=== PATIENT | female | born 1935 | race Caucasian/White ===

== ENCOUNTER → 2017-04-15 | Outpatient (REF) | payer MEDICARE ==
[~2017-04-15] MED LIST: /AMLO25TA PO; /WARF4TA PO; /WARF5TA PO; AMLO5TAB2 PO; ASPI81TA7 PO; AVAP300T PO; B COTAB3 PO; CALC1TAB74 PO; CALC600T7 PO; CARV6.25 PO; CHOL4POW4 PO; COZA100T2 PO; DOCU10ELUD PO; ELIQ2.5T PO; GLUC500T PO; GLYB5TAB5 PO; HEPA50VL SQ; LOPR50TA PO; LOSA100T36 PO; LOSA100T8 PO; MULTTAB4 PO; PRAD150C PO; PRAD75CA3 PO; PRAV40TA PO; TOPR25TA PO; TYLE325T5 PO; VIT250TA PO; ZETI10TA21 PO
[2017-04-16 12:00] LABS: MEAN CORPUSCULAR HEMOGLOBIN 31.1 pg (27.0-33.0); MEAN CORPUSCULAR HGB CONC 33.5 g/dl (32.0-36.5); MEAN CORPUSCULAR VOLUME 92.8 fl (80.0-96.0); RED CELL DISTRIBUTION WIDTH 12.9 % (11.5-14.5)
[2017-04-16 12:24] LABS: CALCIUM LEVEL 9.2 MG/DL (8.8-10.2); CREATININE FOR GFR 1.33 MG/DL (0.55-1.02); GLOMERULAR FILTRATION RATE 40.8 (>32); POTASSIUM SERUM 4.4 MEQ/L (3.5-5.1)
== END ==
LOC: M SFHCCLAY 14:47
PROVIDERS: ATTEND Family Medicine
DX: I48.2 Chronic atrial fibrillation (principal); E11.9 Type 2 diabetes mellitus without complications
CPT/HCPCS: 80048; 83036; 84443; 85027; G0463

== ENCOUNTER → 2017-04-29 | Outpatient (CLI) | payer MEDICARE ==
--- NOTE | 2017-04-29 10:12 | REP ---
CAROTID DUPLEX ULTRASOUND: 04/29/2017. COMPARISON: 06/30/2014 CLINICAL HISTORY: Left carotid bruit. FINDINGS: Standard duplex techniques utilized bilaterally. The right common carotid artery shows some areas of mid course mixed plaque and more mixed plaque distally into the bulb and into the proximal ICA and ECA. The left common carotid shows some intimal thickening and mixed plaque mid and distal portion. Mixed plaque at the bulb and extending into the proximal ICA and ECA. Peak Velocities: RIGHT LEFT CCA systolic 1.17 0.78 m/s ICA systolic 0.74 0.76 m/s ICA diastolic 0.19 0.18 m/s ECA systolic 0.68 1.31 m/s IC/CC ratio 0.6 1.0 There is cranial direction of flow in the right vertebral artery. The left vertebral artery is not visible on today's examination. The previous exam suggested questionable subclavian steal phenomenon. The Doppler waveform analysis does not show spectral broadening or filling of the systolic window on the right. The left internal carotid is also without any significant filling in of the systolic window or spectral broadening. IMPRESSION: 1. Less than 50% stenosis bilateral internal carotids more plaque left than right but there was no hemodynamically significant or flow restricting lesion noted. 2. The right vertebral artery shows cranial directional flow. I do not see color flow demonstrated in either direction for the left vertebral artery on today's study. Signed by Charbel Quesada MD 04/29/2017 11:40 A
== END ==
LOC: M RAD 08:38
PROVIDERS: ATTEND Family Medicine
DX: R09.89 Other specified symptoms and signs involving the circulatory and respiratory systems (principal)

== ENCOUNTER 2017-05-25 12:21 | Inpatient (IN) | payer MEDICARE ==
[~2017-05-25] VITALS: Ht 157.5 cm; Wt 66.1 kg
[~2017-05-25 12:21] MED LIST changes: -AMLO5TAB2 PO; -B COTAB3 PO; -CALC1TAB74 PO; -CHOL4POW4 PO; -ELIQ2.5T PO; -LOSA100T8 PO; -PRAD150C PO; -PRAD75CA3 PO
[2017-05-25] MEDS ORDERED: PRAD150C PO ×2 (12:38→12:46)
[2017-05-25] MEDS ORDERED: CHOL4POW4 PO (12:46)
[2017-05-25 13:33] LABS: BASO % 0.1 % (0.0-1.0); EOS % 0.4 % (0.0-3.0); IMMATURE GRANULOCYTE % 0.7 % (0-0); LYMPH # 1.6 10^3/uL (1.5-4.5); LYMPH % 19.3 % (24.0-44.0); MEAN CORPUSCULAR HEMOGLOBIN 30.9 pg (27.0-33.0); MEAN CORPUSCULAR HGB CONC 33.2 g/dl (32.0-36.5); MEAN CORPUSCULAR VOLUME 93.1 fl (80.0-96.0); MONO # 0.6 10^3/uL (0.0-0.8); MONO % 6.8 % (0.0-5.0); NEUTROPHILS % 72.7 % (36.0-66.0); PLATELET COUNT, AUTOMATED 234 10^3/uL (150-450); RED CELL DISTRIBUTION WIDTH 12.9 % (11.5-14.5); WHITE BLOOD COUNT 8.2 10^3/uL (4.0-10.0)
[2017-05-25 13:35] LABS: ADD MANUAL DIFFER NO; DIFF SLIDE NUMBER 233
[2017-05-25 13:47] LABS: INR 4.09
[2017-05-25 13:54] LABS: ALBUMIN 3.5 GM/DL (3.2-5.2); ALBUMIN/GLOBULIN RATIO 1.03 (1.00-1.93); ALKALINE PHOSPHATASE 34 U/L (45-117); ALT/SGPT 17 U/L (12-78); ANION GAP 9 MEQ/L (8-16); AST/SGOT 13 U/L (15-37); BILIRUBIN,DIRECT 0.1 MG/DL (0.0-0.2); BILIRUBIN,TOTAL 0.4 MG/DL (0.2-1.0); BLOOD UREA NITROGEN 36 MG/DL (7-18); CALCIUM LEVEL 9.5 MG/DL (8.8-10.2); CARBON DIOXIDE LEVEL 24 MEQ/L (21-32); CHLORIDE LEVEL 103 MEQ/L (98-107); CREATININE FOR GFR 1.17 MG/DL (0.55-1.02); GLOMERULAR FILTRATION RATE 47.3 (>32); GLUCOSE, FASTING 139 MG/DL (83-110); POTASSIUM SERUM 4.2 MEQ/L (3.5-5.1); SODIUM LEVEL 136 MEQ/L (136-145); TOTAL PROTEIN 6.9 GM/DL (6.4-8.2)
--- NOTE | 2017-05-25 14:02 | REP ---
CHEST X-RAY: Two views. HISTORY: Abdominal pain. COMPARISON STUDY: July 04, 2012. FINDINGS: The lungs are well inflated and free of infiltrate. The pleural angles are sharp. The heart size is normal. Pulmonary vasculature is not increased. No significant bony abnormality is seen. The aorta is calcific and tortuous. There are mild degenerative changes in the thoracic spine. IMPRESSION: Degenerative changes in the thoracic spine and the thoracic aorta. Otherwise negative chest x-ray. Signed by Derrick Wheeler MD 05/25/2017 02:16 P
[2017-05-25] MEDS ORDERED: AMLO5TAB2 PO (14:44)
[2017-05-25] MEDS ORDERED: B COTAB3 PO (14:44)
[2017-05-25] MEDS ORDERED: LOSA100T8 PO (14:44)
[2017-05-25] MEDS ORDERED: CALC1TAB74 PO (14:46)
--- NOTE | 2017-05-25 14:58 | HPEPDOC ---
[facility] Medical History & Physical Date of Admission May 25, 2017 History and Physical ATTENDING: Dr. Flores PCP: Mikie CC: dark stools HPI: 81yoF with PMH of chronic Afib on Pradaxa who states she had noticed dark stools since last Thursday. She was seen by her PCP with Guaiac positive stool and was sent to ED for evaluation. States she has been feeling generally fatigued, weak. Denies nausea, vomitting, diarrhea, constipation, abdominal pain. Denies any fevers, chills, RUANO, CP, SOB, cough, palpitations, or changes in bladder habits. Upon presentation to the hospital the patient was found to have guaiac positive stool, thus the hospitalist team was consulted. 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 [facility]. NOSE SURGERY SOCHX: Resides in: [facility] Marital Status: Kids: 2 Tobacco use: former smoker ETOH: denies Illicit Drugs: Denies Advanced directives: Pt wants to be DNR. FAMHX: Mother: breast Ca Father: CVA Siblings: 3 brothers, 1 sister Alive, CVA Children: 2 Dtr Alive, well Unexpected deaths due to medical reasons: None. ROS: As noted in HPI, otherwise 11pt ROS of systems reviewed and unremarkable. PE: GEN: 81yoF, appears stated age. Well-nourished, well developed. No acute distress. Alert and oriented x 3. Pleasant, interactive. HEENT: Normocephalic, atraumatic. Pupils are equal, round, and reactive to light. Extraocular movements are intact. No nystagmus appreciated. Sclera are nonicteric. Conjunctiva without injection. Nose midline. Nasal turbinates without bogginess. EACs both patent BL. No facial asymmetry. Moist mucous membranes. Dentition fair. Pharynx pink and moist, no cobblestoning. Neck supple , trachea midline. No lymphadenopathy or thyromegaly appreciated. CHEST: Regular rate and rhythm, +S1, +S2 LUNGS: Clear to auscultation bilaterally. No wheezes, rales, or rhonchi. Breathing appears symmetric and easy. Patient is speaking in full sentences. No accessory muscle use. ABD: Round, soft, non-tender, non-distended. +Bowel sounds throughout. No rebound or guarding. No costovertebral angle tenderness. EXT: Pulses 2+ bilaterally dorsalis pedis and radial. No lower extremity edema appreciated. SKIN: [place], dry, warm. Capillary refill <2sec. No rashes. NEURO: Alert and oriented x 3. Cranial nerves III-XII are intact. No focal deficits appreciated. CXR: Degenerative changes in the thoracic spine and the thoracic aorta. Otherwise negative chest x-ray EKG: Afib VR 104 bpm, low voltage, NSST abn. A&P: 81yoF with PMH of chronic Afib on Pradaxa who states she had noticed dark stools since last Thursday. She was seen by her PCP with Guaiac positive stool and was sent to ED for evaluation. States she has been feeling generally fatigued, weak. Denies nausea, vomitting, diarrhea, constipation, abdominal pain. 1. The patient will be admitted to PCU for at least [address] Flores' s service. Pt is discussed with Dr Garland. 2. Symptomatic anemia/GI Bleed. Consent on chart. 2 u PRBC. Trend Hgb with Q6 CBC. Baseline Hgb appears to be 10-11. Last EGD/[place] 2008 ioana Can. Consider Surgical/GI consult if needed. 3. HLD. Statin. Hold Cholestyramine for now. 4. HTN. Cont BB with hold parameters. Hold ARB/HCTZ/Norvasc for now. 5. Chronic Afib. TM/PCU. BB with hold parameters. Hold pradaxa for now related to GI bleed. 6. DM. SSI/Clear liq diet. Hold Metformin for now. DVT prophylaxis. SCD/TEDS. No anticoagulation related to above. The patient requests DNR. Vital Signs Vital Signs Date Time Temp Pulse Resp B/P (MAP) Pulse Ox O2 Delivery O2 Flow Rate FiO2 05/25/17 14:30 05/25/17 14:28 102 129 142 05/25/17 12:30 98.7 16 100 Room Air Laboratory Data Labs 24H Laboratory Tests 2 05/25/17 13:06: Immature Granulocyte % (Auto) 0.7H, White Blood Count 8.2, Red Blood Count 2.88L , Hemoglobin 8.9L, Hematocrit 26.8L, Mean Corpuscular Volume 93.1, Mean Corpuscular Hemoglobin 30.9, Mean Corpuscular Hemoglobin Concent 33.2, Red Cell Distribution Width 12.9, Platelet Count 234, Neutrophils (%) (Auto) 72.7H, Lymphocytes (%) (Auto) 19.3L, Monocytes (%) (Auto) 6.8H, Eosinophils (%) (Auto) 0.4, Basophils (%) (Auto) 0.1, Neutrophils # (Auto) 6.0, Lymphocytes # (Auto) 1.6, Monocytes # (Auto) 0.6, Eosinophils # (Auto) 0.0, Basophils # (Auto) 0.0, Immature Granulocyte # (Auto) 0.1H, Nucleated Red Blood Cells % (auto) 0.0, Prothrombin Time 41.8H, Prothromb Time International Ratio 4.09, Activated Partial Thromboplast Time 78.2H, Anion Gap 9, Glomerular Filtration Rate 47.3, Calcium Level 9.5, Aspartate Amino Transf (AST/SGOT) 13L, Alanine Aminotransferase (ALT/SGPT) 17, Alkaline Phosphatase 34L, Total Bilirubin 0.4, Direct Bilirubin 0.1, Total Creatine Kinase 51, Creatine Kinase MB 1.0, Creatine Kinase MB Relative Index 1.96, Troponin I < 0.02, Total Protein 6.9, Albumin 3.5, Albumin/Globulin Ratio 1.03 CBC/BMP Laboratory Tests 05/25/17 13:06 Red Blood Count 2.88 L, Mean Corpuscular Volume 93.1, Mean Corpuscular Hemoglobin 30.9, Mean Corpuscular Hemoglobin Concent 33.2, Red Cell Distribution Width 12.9, Neutrophils (%) (Auto) 72.7 H, Lymphocytes (%) (Auto) 19.3 L, Monocytes (%) (Auto) 6.8 H, Eosinophils (%) (Auto) 0.4, Basophils (%) ( Auto) 0.1, Neutrophils # (Auto) 6.0, Lymphocytes # (Auto) 1.6, Monocytes # (Auto ) 0.6, Eosinophils # (Auto) 0.0, Basophils # (Auto) 0.0 Home Medications Scheduled (Losartan Potassium/Hydroc 100-12.5 mg) 1 Tab Tab, 1 TAB PO DAILY (B Complex) 1 Tab Tab, 1 TAB PO DAILY Amlodipine Besylate (Amlodipine Besylate) 5 Mg Tab, 5 MG PO DAILY Calcium/Vitamin D (Calcium/Vitamin D 600-400 mg-Unit) 1 Tab Tab, 1 TAB PO DAILY Cholestyramine (Cholestyramine) 4 Gm Pow, 4 GM PO DAILY Dabigatran Etexilate (Pradaxa) 150 Mg Cap, 150 MG PO BID Metformin Hydrochloride (Glucophage) 500 Mg Tab, 1,000 MG PO BIDWM Metoprolol Succinate (Toprol Xl) 25 Mg Tab, 25 MG PO DAILY hold for hr less than 50 Multivitamins (Multivitamins) Tab, 1 TAB PO DAILY Pravastatin Sodium (Pravachol) 40 Mg Tab, 40 MG PO QHS Allergies Coded Allergies: No Known Allergies (Verified , 05/25/17) Cindi Jenkins May 25, 2017 14:58
[2017-05-25] MEDS ORDERED: DEXTROSE 50% 50 ML SYRINGE IV PRN (15:45)
[2017-05-25] MEDS ORDERED: GLUCAGON FOR INJ 1 MG VIAL (J1610) SC PRN (15:45)
[2017-05-25] MEDS ORDERED: GLUCOSE 4 GM CHEW TABLET PO PRN (15:45)
--- NOTE | 2017-05-25 16:16 | ECGEPIP ---
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
[2017-05-25] MEDS: HumaLOG INSULIN (NovoLOG) PER UNIT SC SCH ×2 (17:30→20:52)
[2017-05-25 18:03] LABS: MEAN CORPUSCULAR HGB CONC 34.2 g/dl (32.0-36.5); MEAN CORPUSCULAR VOLUME 90.6 fl (80.0-96.0); RED CELL DISTRIBUTION WIDTH 13.2 % (11.5-14.5); WHITE BLOOD COUNT 7.6 10^3/uL (4.0-10.0)
[2017-05-25 20:00] VITALS: BP 121/78
[2017-05-25] MEDS: PRAVASTATIN 20 MG TAB PO SCH (20:50)
[2017-05-25] MEDS: METOPROLOL SUCC *XL* 25MG TAB (TopROL *XL*) PO SCH (20:51)
[2017-05-26] VITALS: BP 125/68
[2017-05-26 00:28] LABS: MEAN CORPUSCULAR HEMOGLOBIN 30.6 pg (27.0-33.0); MEAN CORPUSCULAR HGB CONC 34.3 g/dl (32.0-36.5); MEAN CORPUSCULAR VOLUME 89.3 fl (80.0-96.0); RED CELL DISTRIBUTION WIDTH 13.9 % (11.5-14.5)
[2017-05-26 04:00] VITALS: BP 139/68
[2017-05-26 07:17] LABS: MEAN CORPUSCULAR HEMOGLOBIN 30.6 pg (27.0-33.0); MEAN CORPUSCULAR HGB CONC 34.1 g/dl (32.0-36.5); MEAN CORPUSCULAR VOLUME 89.7 fl (80.0-96.0); RED CELL DISTRIBUTION WIDTH 14.3 % (11.5-14.5); WHITE BLOOD COUNT 6.6 10^3/uL (4.0-10.0)
[2017-05-26 07:42] LABS: ALBUMIN 3.3 GM/DL (3.2-5.2); ALBUMIN/GLOBULIN RATIO 1.18 (1.00-1.93); CALCIUM LEVEL 8.9 MG/DL (8.8-10.2); CREATININE FOR GFR 0.96 MG/DL (0.55-1.02); GLOMERULAR FILTRATION RATE 59.4 (>32); MAGNESIUM LEVEL 1.5 MG/DL (1.8-2.4); POTASSIUM SERUM 3.8 MEQ/L (3.5-5.1); TOTAL PROTEIN 6.1 GM/DL (6.4-8.2)
[2017-05-26] MEDS: HumaLOG INSULIN (NovoLOG) PER UNIT SC SCH ×4 (07:53→21:00)
[2017-05-26 08:00] VITALS: BP 118/58
[2017-05-26] MEDS: METOPROLOL SUCC *XL* 25MG TAB (TopROL *XL*) PO SCH (08:37)
--- NOTE | 2017-05-26 11:25 | IPNPDOC ---
Subjective Date Seen The patient was seen on 05/26/17. Subjective Chief Complaint/HPI The patient is a 81-year-old female admitted with a reason for visit of Blood Stool Dizziness. Events since last encounter Significant improvement in dizziness after transfusion. H/H improved and stable. Constitutional: Denies: Chills, Fever, Night Sweats Pulmonary: Denies: Dyspnea, Cough Cardiovascular: Denies: Chest Pain, Palpitations, Orthopnea, Paroxysmal Noc. Dyspnea, Lt Headedness Gastrointestinal: Denies: Nausea, Vomiting, Abdominal Pain, Diarrhea, Constipation Hematologic: Denies: Bruising, Bleeding Excessively Psych: Reports: Mood Normal, Denies: Depression, Memory Issues Objective Physical Examination General Exam: Positive: Alert, No Acute Distress Eye Exam: Positive: PERRLA, Conjunctiva & lids normal, EOMI, Negative: Sclera icteric Neck Exam: Positive: Supple, Negative: JVD, thyromegaly Chest Exam: Positive: Clear to auscultation, Normal air movement Heart Exam: Positive: Rate Normal, Regular Rhythm, Normal S1, Normal S2, Negative: Murmurs, Rubs Telemetry: Positive: No significant arrhythmia Abdomen Exam: Positive: Normal bowel sounds, Soft, Negative: Tenderness, Hepatospenomegaly Female Exam: Positive: Nl Ext Genitalia, Negative: Lesions, Discharge, Odor, Tenderness Extremity Exam: Positive: Normal pulses, Negative: Clubbing, Cyanosis, Edema Skin Exam: Positive: Nl turgor and temperature, Negative: Rash, Breakdown Psych Exam: Positive: Mental status NL, Mood NL, Oriented x 3 Assessment /Plan Problems (1) GI bleed Status: Acute Problem Specific Plan: Consult Specialist Problem Text: + black stools with + guaiac at PCPs office. will call gastro for evaluation. (2) Atrial fibrillation Status: Chronic Response to Treatment: Stable Problem Specific Plan: Monitor Clinically Problem Text: rate controlled. Metoprolol 25 mg po daily. anti-coagulant on hold due to GI bleed/anemia. (3) History of CVA (cerebrovascular accident) Status: Chronic Response to Treatment: Stable Problem Specific Plan: Monitor Clinically Problem Text: CVA in 2011 (4) Chronic anemia Status: Chronic (5) Diabetes mellitus Status: Chronic Problem Specific Plan: Monitor Clinically Plan/VTE VTE Prophylaxis Ordered?: No VTE Exclusion Pharmacological: Active Bleeding VS, I&O, 24H, Fishbone Vital Signs/I&O Vital Signs Date Time Temp Pulse Resp B/P (MAP) Pulse Ox O2 Delivery O2 Flow Rate FiO2 05/26/17 08:37 88 118/58 05/26/17 08:00 98.4 18 97 Room Air I&O- Last 24 Hours up to 6 AM 05/27/17 06:00 Intake Total 360 ml Output Total 225 ml Balance 135 ml Laboratory Data 24H LABS Laboratory Tests 2 05/25/17 13:06: Immature Granulocyte % (Auto) 0.7H, White Blood Count 8.2, Red Blood Count 2.88L , Hemoglobin 8.9L, Hematocrit 26.8L, Mean Corpuscular Volume 93.1, Mean Corpuscular Hemoglobin 30.9, Mean Corpuscular Hemoglobin Concent 33.2, Red Cell Distribution Width 12.9, Platelet Count 234, Neutrophils (%) (Auto) 72.7H, Lymphocytes (%) (Auto) 19.3L, Monocytes (%) (Auto) 6.8H, Eosinophils (%) (Auto) 0.4, Basophils (%) (Auto) 0.1, Neutrophils # (Auto) 6.0, Lymphocytes # (Auto) 1.6, Monocytes # (Auto) 0.6, Eosinophils # (Auto) 0.0, Basophils # (Auto) 0.0, Immature Granulocyte # (Auto) 0.1H, Nucleated Red Blood Cells % (auto) 0.0, Prothrombin Time 41.8H, Prothromb Time International Ratio 4.09, Activated Partial Thromboplast Time 78.2H, Anion Gap 9, Glomerular Filtration Rate 47.3, Calcium Level 9.5, Aspartate Amino Transf (AST/SGOT) 13L, Alanine Aminotransferase (ALT/SGPT) 17, Alkaline Phosphatase 34L, Total Bilirubin 0.4, Direct Bilirubin 0.1, Total Creatine Kinase 51, Creatine Kinase MB 1.0, Creatine Kinase MB Relative Index 1.96, Troponin I < 0.02, Total Protein 6.9, Albumin 3.5, Albumin/Globulin Ratio 1.03 05/25/17 17:54: Total Creatine Kinase 52, Creatine Kinase MB 1.0, Creatine Kinase MB Relative Index 1.92, Troponin I < 0.02 05/25/17 19:48: Bedside Glucose (Misc Panel) 130H 05/25/17 23:39: Urine Appearance CLEAR, Urine Color STRAW, Urine pH 5.0, Urine Specific [place] 1.005, Urine Protein NEGATIVE, Urine Glucose (UA) NEGATIVE, Urine Ketones NEGATIVE, Urine Urobilinogen 0.2, Urine Bilirubin NEGATIVE, Urine Leukocyte Esterase NEGATIVE, Urine Blood 1+H, Urine Nitrite NEGATIVE, Urine WBC (Auto) 0, Urine RBC (Auto) 0, Urine Hyaline Casts (Auto) 0, Urine Bacteria (Auto) 1+H, Urine Squamous Epithelial Cells 0, Urine Mucus (Auto) SMALL, Urine Sperm (Auto) 05/26/17 00:14: Total Creatine Kinase 55, Creatine Kinase MB 1.0, Creatine Kinase MB Relative Index 1.81, Troponin I < 0.02 05/26/17 07:00: Anion Gap 6L, Glomerular Filtration Rate 59.4, Blood Urea Nitrogen 27H, Creatinine 0.96, Sodium Level 140, Potassium Level 3.8, Chloride Level 108H, Carbon Dioxide Level 26, Calcium Level 8.9, Aspartate Amino Transf (AST/SGOT) 17 , Alanine Aminotransferase (ALT/SGPT) 18, Alkaline Phosphatase 33L, Total Bilirubin 2.0#H, Total Protein 6.1L, Albumin 3.3, Magnesium Level 1.5L, Albumin/ Globulin Ratio 1.18 05/26/17 09:49: Total Creatine Kinase 56, Creatine Kinase MB 1.0, Creatine Kinase MB Relative Index 1.78, Troponin I < 0.02 CBC/BMP Laboratory Tests 05/25/17 13:06 Red Blood Count 2.88 L, Mean Corpuscular Volume 93.1, Mean Corpuscular Hemoglobin 30.9, Mean Corpuscular Hemoglobin Concent 33.2, Red Cell Distribution Width 12.9, Neutrophils (%) (Auto) 72.7 H, Lymphocytes (%) (Auto) 19.3 L, Monocytes (%) (Auto) 6.8 H, Eosinophils (%) (Auto) 0.4, Basophils (%) ( Auto) 0.1, Neutrophils # (Auto) 6.0, Lymphocytes # (Auto) 1.6, Monocytes # (Auto ) 0.6, Eosinophils # (Auto) 0.0, Basophils # (Auto) 0.0 05/25/17 17:54 Red Blood Count 3.29 L, Mean Corpuscular Volume 90.6, Mean Corpuscular Hemoglobin 31.0, Mean Corpuscular Hemoglobin Concent 34.2, Red Cell Distribution Width 13.2 05/26/17 00:14 Red Blood Count 3.56 L, Mean Corpuscular Volume 89.3, Mean Corpuscular Hemoglobin 30.6, Mean Corpuscular Hemoglobin Concent 34.3, Red Cell Distribution Width 13.9 05/26/17 07:00 Red Blood Count 3.69 L, Mean Corpuscular Volume 89.7, Mean Corpuscular Hemoglobin 30.6, Mean Corpuscular Hemoglobin Concent 34.1, Red Cell Distribution Width 14.3, Calcium Level 8.9, Aspartate Amino Transf (AST/SGOT) 17 , Alanine Aminotransferase (ALT/SGPT) 18, Alkaline Phosphatase 33 L, Total Bilirubin 2.0 #H, Total Protein 6.1 L, Albumin 3.[address] [facility] May 26, 2017 11:25
[2017-05-26] MEDS ORDERED: MAG SULF 1GM/100ML (MAG RUN) 1 GM in APPROPRIATE DILUENT 1 EA IV ONE (11:30)
[2017-05-26 12:00] VITALS: BP 119/68
[2017-05-26 12:11] LABS: MEAN CORPUSCULAR HEMOGLOBIN 30.9 pg (27.0-33.0); MEAN CORPUSCULAR HGB CONC 34.7 g/dl (32.0-36.5); RED CELL DISTRIBUTION WIDTH 14.1 % (11.5-14.5); WHITE BLOOD COUNT 6.1 10^3/uL (4.0-10.0)
[2017-05-26 13:35] VITALS: BP 105/60
[2017-05-26 14:46] LABS: INR 1.37
[2017-05-26 18:22] LABS: MEAN CORPUSCULAR HGB CONC 34.9 g/dl (32.0-36.5); MEAN CORPUSCULAR VOLUME 88.7 fl (80.0-96.0); WHITE BLOOD COUNT 6.9 10^3/uL (4.0-10.0)
[2017-05-26] MEDS: PRAVASTATIN 20 MG TAB PO SCH (21:16)
[2017-05-26 22:00] VITALS: BP 128/77
[2017-05-27 00:22] LABS: MEAN CORPUSCULAR HGB CONC 34.7 g/dl (32.0-36.5); MEAN CORPUSCULAR VOLUME 89.2 fl (80.0-96.0); WHITE BLOOD COUNT 7.3 10^3/uL (4.0-10.0)
[2017-05-27 06:00] VITALS: BP 159/80
[2017-05-27 06:52] LABS: MEAN CORPUSCULAR HEMOGLOBIN 30.5 pg (27.0-33.0); MEAN CORPUSCULAR HGB CONC 34.2 g/dl (32.0-36.5); MEAN CORPUSCULAR VOLUME 89.2 fl (80.0-96.0); RED CELL DISTRIBUTION WIDTH 13.9 % (11.5-14.5); WHITE BLOOD COUNT 6.2 10^3/uL (4.0-10.0)
[2017-05-27 07:08] LABS: ALBUMIN 3.3 GM/DL (3.2-5.2); ALKALINE PHOSPHATASE 36 U/L (45-117); ALT/SGPT 18 U/L (12-78); ANION GAP 6 MEQ/L (8-16); AST/SGOT 15 U/L (15-37); BILIRUBIN,TOTAL 0.8 MG/DL (0.2-1.0); BLOOD UREA NITROGEN 16 MG/DL (7-18); CALCIUM LEVEL 8.8 MG/DL (8.8-10.2); CARBON DIOXIDE LEVEL 28 MEQ/L (21-32); CHLORIDE LEVEL 110 MEQ/L (98-107); CREATININE FOR GFR 0.95 MG/DL (0.55-1.02); GLOMERULAR FILTRATION RATE > 60.0 (>32); GLUCOSE, FASTING 98 MG/DL (83-110); MAGNESIUM LEVEL 1.7 MG/DL (1.8-2.4); POTASSIUM SERUM 3.4 MEQ/L (3.5-5.1); SODIUM LEVEL 144 MEQ/L (136-145); TOTAL PROTEIN 6.6 GM/DL (6.4-8.2)
[2017-05-27] MEDS ORDERED: MAG SULF 1GM/100ML (MAG RUN) 1 GM in APPROPRIATE DILUENT 1 EA IV ONE (07:30)
--- NOTE | 2017-05-27 07:53 | IPNPDOC ---
Subjective Date Seen The patient was seen on 05/27/17. Subjective Chief Complaint/HPI The patient is a 81-year-old female admitted with a reason for visit of Blood Stool Dizziness. Events since last encounter Planned EGD with Dr. Can today. Hemoglobin stable. Warfarin on hold. INR < 1.5. Pulmonary: Denies: Dyspnea, Cough Cardiovascular: Denies: Chest Pain, Palpitations, Orthopnea, Paroxysmal Noc. Dyspnea, Lt Headedness Gastrointestinal: Denies: Nausea, Vomiting, Abdominal Pain, Diarrhea, Constipation Genitourinary: Denies: Dysuria, Frequency, Incontinence, Retention Objective Physical Examination General Exam: Positive: Alert, No Acute Distress Eye Exam: Positive: PERRLA, Conjunctiva & lids normal, EOMI, Negative: Sclera icteric Neck Exam: Positive: Supple, Negative: JVD, thyromegaly Chest Exam: Positive: Clear to auscultation, Normal air movement Heart Exam: Positive: Rate Normal, Regular Rhythm, Normal S1, Normal S2, Negative: Murmurs, Rubs Telemetry: Positive: No significant arrhythmia Abdomen Exam: Positive: Normal bowel sounds, Soft, Negative: Tenderness, Hepatospenomegaly Female Exam: Positive: Nl Ext Genitalia, Negative: Lesions, Discharge, Odor, Tenderness Extremity Exam: Positive: Normal pulses, Negative: Clubbing, Cyanosis, Edema Skin Exam: Positive: Nl turgor and temperature, Negative: Rash, Breakdown Psych Exam: Positive: Mental status NL, Mood NL, Oriented x 3 Assessment /Plan Problems (1) GI bleed Status: Acute Problem Specific Plan: Consult Specialist Problem Text: 05/27/17: planned EGD this am. + black stools with + guaiac at PCPs office. will call gastro for evaluation. (2) Atrial fibrillation Status: Chronic Response to Treatment: Stable Problem Specific Plan: Monitor Clinically Problem Text: rate controlled. Metoprolol 25 mg po daily. anti-coagulant on hold due to GI bleed/anemia. (3) History of CVA (cerebrovascular accident) Status: Chronic Response to Treatment: Stable Problem Specific Plan: Monitor Clinically Problem Text: CVA in 2011 (4) Chronic anemia Status: Chronic (5) Diabetes mellitus Status: Chronic Problem Specific Plan: Monitor Clinically Plan/VTE VTE Prophylaxis Ordered?: No VTE Exclusion Pharmacological: Active Bleeding VS, I&O, 24H, Fishbone Vital Signs/I&O Vital Signs Date Time Temp Pulse Resp B/P (MAP) Pulse Ox O2 Delivery O2 Flow Rate FiO2 05/27/17 06:00 96.9 77 17 159/80 (106) 98 Room Air I&O- Last 24 Hours up to 6 AM 05/28/17 06:00 Output Total 350 ml Balance -350 ml Laboratory Data 24H LABS Laboratory Tests 2 05/26/17 09:49: Total Creatine Kinase 56, Creatine Kinase MB 1.0, Creatine Kinase MB Relative Index 1.78, Troponin I < 0.02 05/26/17 11:27: Bedside Glucose (Misc Panel) 106 05/26/17 14:13: Prothrombin Time 17.2H, Prothromb Time International Ratio 1.37 05/26/17 16:38: Bedside Glucose (Misc Panel) 85 05/26/17 20:16: Bedside Glucose (Misc Panel) 154H 05/27/17 05:40: Anion Gap 6L, Glomerular Filtration Rate > 60.0, Blood Urea Nitrogen 16, Creatinine 0.95, Sodium Level 144, Potassium Level 3.4L, Chloride Level 110H, Carbon Dioxide Level 28, Calcium Level 8.8, Aspartate Amino Transf (AST/SGOT) 15 , Alanine Aminotransferase (ALT/SGPT) 18, Alkaline Phosphatase 36L, Total Bilirubin 0.8#, Total Protein 6.6, Albumin 3.3, Magnesium Level 1.7L, Albumin/ Globulin Ratio 1.00 CBC/BMP Laboratory Tests 05/26/17 12:03 Red Blood Count 3.72 L, Mean Corpuscular Volume 89.0, Mean Corpuscular Hemoglobin 30.9, Mean Corpuscular Hemoglobin Concent 34.7, Red Cell Distribution Width 14.1 05/26/17 17:56 Red Blood Count 3.81 L, Mean Corpuscular Volume 88.7, Mean Corpuscular Hemoglobin 31.0, Mean Corpuscular Hemoglobin Concent 34.9, Red Cell Distribution Width 14.0 05/27/17 00:06 Red Blood Count 3.52 L, Mean Corpuscular Volume 89.2, Mean Corpuscular Hemoglobin 31.0, Mean Corpuscular Hemoglobin Concent 34.7, Red Cell Distribution Width 14.0 05/27/17 05:40 Red Blood Count 3.80 L, Mean Corpuscular Volume 89.2, Mean Corpuscular Hemoglobin 30.5, Mean Corpuscular Hemoglobin Concent 34.2, Red Cell Distribution Width 13.9, Calcium Level 8.8, Aspartate Amino Transf (AST/SGOT) 15 , Alanine Aminotransferase (ALT/SGPT) 18, Alkaline Phosphatase 36 L, Total Bilirubin 0.8 #, Total Protein 6.6, Albumin 3.[address] [facility] May 27, 2017 07:53
[2017-05-27] MEDS: HumaLOG INSULIN (NovoLOG) PER UNIT SC SCH ×4 (08:17→20:48)
[2017-05-27] MEDS: METOPROLOL SUCC *XL* 25MG TAB (TopROL *XL*) PO SCH (09:35)
[2017-05-27 11:00] LABS: INR 1.21
[2017-05-27] MEDS ORDERED: PROPOFOL 200 MG/20 ML VIAL As Ordered ONE (13:15)
[2017-05-27] MEDS ORDERED: LIDOCAINE 2% INJ 100 MG/5 ML SDV (FOR ANES.) As Ordered ONE (13:15)
--- NOTE | 2017-05-27 13:21 | ROOR ---
Patient Name: Edilia Benites Procedure Date: 05/27/2017 1:02 PM Date of : 1935 Age: 81 Room: [facility] Gender: Female Note Status: Finalized Procedure: Upper GI endoscopy Indications: Iron deficiency anemia, Melena Providers: Fabián Can MD Referring MD: Redd Deluna MD Requesting Provider: Medicines: Monitored Anesthesia Care Complications: No immediate complications. Procedure: Pre-Anesthesia Assessment: - The heart rate, respiratory rate, oxygen saturations, blood pressure, adequacy of pulmonary ventilation, and response to care were monitored throughout the procedure. The Endoscope was introduced through the mouth, and advanced to the second part of duodenum. The upper GI endoscopy was accomplished without difficulty. The patient tolerated the procedure well. Findings: The Z-line was regular and was found 35 cm from the incisors. A small hiatal hernia was present. No other significant abnormalities were identified in a careful examination of the stomach. The exam of the duodenum was otherwise normal. Impression: - Z-line regular, 35 cm from the incisors. - Small hiatal hernia. - No specimens collected. - The examination was otherwise normal. Recommendation: - Patient has a contact number available for emergencies. The signs and symptoms of potential delayed complications were discussed with the patient. Return to normal activities tomorrow. Written discharge instructions were provided to the patient. - High fiber diet. - Continue present medications. - [facility]. - Follow an antireflux regimen. - Return to referring physician. - The findings and recommendations were discussed with the patient's family. Fabián Can MD Fabián Can MD 05/27/2017 1:20:17 PM This report has been signed electronically. Number of Addenda: 0 Note Initiated On: 05/27/2017 1:02 PM Estimated Blood Loss: Estimated blood loss: none.
[2017-05-27 14:00] VITALS: BP 136/85
[2017-05-27 15:25] LABS: MEAN CORPUSCULAR HEMOGLOBIN 30.7 pg (27.0-33.0); MEAN CORPUSCULAR HGB CONC 33.8 g/dl (32.0-36.5); RED CELL DISTRIBUTION WIDTH 13.7 % (11.5-14.5); WHITE BLOOD COUNT 6.1 10^3/uL (4.0-10.0)
--- NOTE | 2017-05-27 16:06 | REP ---
Right upper quadrant sonography: History: Elevated INR, not on warfarin. Findings: Scanning through the right upper quadrant of the abdomen demonstrates mild gallbladder distension, 9 cm. A shadowing calculus is seen in the dependent portion of the gallbladder. The calculus measures 0.8 cm in diameter. No pericholecystic fluid or gallbladder wall thickening is seen. No focal liver lesion is observed. Common bile duct is normal measuring 0.4 cm in greatest diameter. There is no evidence of ascites or right renal abnormality. The right kidney measures 9.9 x 4.4 x 4.5 cm. The pancreas is obscured by abdominal gas. Impression: Mildly dilated gallbladder containing a mobile 0.8 cm calculus. Otherwise negative right upper quadrant sonography. Signed by Derrick Wheeler MD 05/27/2017 05:03 P
[2017-05-27] MEDS: PRAVASTATIN 20 MG TAB PO SCH (20:48)
[2017-05-27 22:00] VITALS: BP 122/61
[2017-05-28 06:00] VITALS: BP 145/74
[2017-05-28 06:16] LABS: ALBUMIN 3.1 GM/DL (3.2-5.2); ALBUMIN/GLOBULIN RATIO 1.07 (1.00-1.93); ALKALINE PHOSPHATASE 32 U/L (45-117); ALT/SGPT 16 U/L (12-78); ANION GAP 8 MEQ/L (8-16); AST/SGOT 14 U/L (15-37); BILIRUBIN,TOTAL 0.7 MG/DL (0.2-1.0); BLOOD UREA NITROGEN 14 MG/DL (7-18); CALCIUM LEVEL 8.6 MG/DL (8.8-10.2); CARBON DIOXIDE LEVEL 24 MEQ/L (21-32); CHLORIDE LEVEL 110 MEQ/L (98-107); CREATININE FOR GFR 0.91 MG/DL (0.55-1.02); GLOMERULAR FILTRATION RATE > 60.0 (>32); GLUCOSE, FASTING 104 MG/DL (83-110); POTASSIUM SERUM 3.6 MEQ/L (3.5-5.1); SODIUM LEVEL 142 MEQ/L (136-145)
[2017-05-28 08:15] LABS: INR 1.07
--- NOTE | 2017-05-28 08:23 | IPNPDOC ---
Subjective Date Seen The patient was seen on 05/28/17. Subjective Chief Complaint/HPI The patient is a 81-year-old female admitted with a reason for visit of Blood Stool Dizziness. Events since last encounter Tolerating full liquids. EGD negative. No further melanotic stools noted/ + flatus Constitutional: Denies: Chills, Fever, Night Sweats Pulmonary: Denies: Dyspnea, Cough Cardiovascular: Denies: Chest Pain, Palpitations, Orthopnea, Paroxysmal Noc. Dyspnea, Lt Headedness Gastrointestinal: Denies: Nausea, Vomiting, Abdominal Pain, Diarrhea, Constipation, Melena Objective Physical Examination General Exam: Positive: Alert, No Acute Distress Eye Exam: Positive: PERRLA, Conjunctiva & lids normal, EOMI, Negative: Sclera icteric Neck Exam: Positive: Supple, Negative: JVD, thyromegaly Chest Exam: Positive: Clear to auscultation, Normal air movement Heart Exam: Positive: Rate Normal, Regular Rhythm, Normal S1, Normal S2, Negative: Murmurs, Rubs Telemetry: Positive: No significant arrhythmia Abdomen Exam: Positive: Normal bowel sounds, Soft, Negative: Tenderness, Hepatospenomegaly Female Exam: Positive: Nl Ext Genitalia, Negative: Lesions, Discharge, Odor, Tenderness Extremity Exam: Positive: Normal pulses, Negative: Clubbing, Cyanosis, Edema Skin Exam: Positive: Nl turgor and temperature, Negative: Rash, Breakdown Psych Exam: Positive: Mental status NL, Mood NL, Oriented x 3 Assessment /Plan Problems (1) GI bleed Status: Acute Problem Specific Plan: Consult Specialist Problem Text: 05/28/17: EGD negative.Resume full op diet. Resume PRadaxa at lower dosing and monitor. Patient had INR of 4.0 on presentation in absence of Warfarin use. Liver US negative. Will monitor. repeat INR daily. 05/27/17: planned EGD this am. + black stools with + guaiac at PCPs office. will call gastro for evaluation. (2) Atrial fibrillation Status: Chronic Response to Treatment: Stable Problem Specific Plan: Monitor Clinically Problem Text: rate controlled. Metoprolol 25 mg po daily. anti-coagulant on hold due to GI bleed/anemia. (3) History of CVA (cerebrovascular accident) Status: Chronic Response to Treatment: Stable Problem Specific Plan: Monitor Clinically Problem Text: CVA in 2011 (4) Chronic anemia Status: Chronic (5) Diabetes mellitus Status: Chronic Problem Specific Plan: Monitor Clinically Plan/VTE VTE Prophylaxis Ordered?: Yes (pradaxa) VS, I&O, 24H, Fishbone Vital Signs/I&O Vital Signs Date Time Temp Pulse Resp B/P (MAP) Pulse Ox O2 Delivery O2 Flow Rate FiO2 05/28/17 06:00 97.2 70 18 145/74 (97) 98 05/27/17 14:00 Room Air Laboratory Data 24H LABS Laboratory Tests 2 05/27/17 20:16: Bedside Glucose (Misc Panel) 206H 05/28/17 05:35: Prothrombin Time 14.0, Prothromb Time International Ratio 1.07, Anion Gap 8, Glomerular Filtration Rate > 60.0, Blood Urea Nitrogen 14, Creatinine 0.91, Sodium Level 142, Potassium Level 3.6, Chloride Level 110H, Carbon Dioxide Level 24, Calcium Level 8.6L, Aspartate Amino Transf (AST/SGOT) 14L, Alanine Aminotransferase (ALT/SGPT) 16, Alkaline Phosphatase 32L, Total Bilirubin 0.7, Total Protein 6.0L, Albumin 3.1L, Magnesium Level 2.0, Albumin/Globulin Ratio 1.07 CBC/BMP Laboratory Tests 05/27/17 15:10 Red Blood Count 3.87 L, Mean Corpuscular Volume 91.0, Mean Corpuscular Hemoglobin 30.7, Mean Corpuscular Hemoglobin Concent 33.8, Red Cell Distribution Width 13.7 05/28/17 05:35 Calcium Level 8.6 L, Aspartate Amino Transf (AST/SGOT) 14 L, Alanine Aminotransferase (ALT/SGPT) 16, Alkaline Phosphatase 32 L, Total Bilirubin 0.7, Total Protein 6.0 L, Albumin 3.1 L Ann Love PHYSIOTHERAPY ASSISTANT May 28, 2017 08:23
[2017-05-28] MEDS: DABIGATRAN ETEXILATE 75 MG CAP (PRADAXA) PO SCH ×2 (09:45→20:25)
[2017-05-28] MEDS: HumaLOG INSULIN (NovoLOG) PER UNIT SC SCH ×4 (09:49→20:00)
[2017-05-28] MEDS: METOPROLOL SUCC *XL* 25MG TAB (TopROL *XL*) PO SCH (09:49)
[2017-05-28 14:00] VITALS: BP 117/60
[2017-05-28] MEDS: PRAVASTATIN 20 MG TAB PO SCH (20:25)
[2017-05-28 22:00] VITALS: BP 104/55
[2017-05-29 06:00] VITALS: BP 122/58
[2017-05-29 06:27] LABS: INR 1.33
[2017-05-29 06:30] LABS: ALKALINE PHOSPHATASE 35 U/L (45-117); ALT/SGPT 16 U/L (12-78); ANION GAP 4 MEQ/L (8-16); AST/SGOT 12 U/L (15-37); BILIRUBIN,TOTAL 0.6 MG/DL (0.2-1.0); BLOOD UREA NITROGEN 15 MG/DL (7-18); CALCIUM LEVEL 8.2 MG/DL (8.8-10.2); CARBON DIOXIDE LEVEL 26 MEQ/L (21-32); CHLORIDE LEVEL 112 MEQ/L (98-107); CREATININE FOR GFR 0.86 MG/DL (0.55-1.02); GLOMERULAR FILTRATION RATE > 60.0 (>32); GLUCOSE, FASTING 110 MG/DL (83-110); MAGNESIUM LEVEL 1.8 MG/DL (1.8-2.4); POTASSIUM SERUM 3.8 MEQ/L (3.5-5.1); SODIUM LEVEL 142 MEQ/L (136-145)
[2017-05-29] MEDS ORDERED: PRAD75CA3 PO (07:31)
[2017-05-29 08:06] LABS: BASO % 0.2 % (0.0-1.0); EOS # 0.2 10^3/uL (0.0-0.50); EOS % 2.8 % (0.0-3.0); IMMATURE GRANULOCYTE % 0.3 % (0-0); LYMPH # 1.7 10^3/uL (1.5-4.5); LYMPH % 30.3 % (24.0-44.0); MEAN CORPUSCULAR HEMOGLOBIN 30.4 pg (27.0-33.0); MEAN CORPUSCULAR HGB CONC 33.1 g/dl (32.0-36.5); MEAN CORPUSCULAR VOLUME 91.7 fl (80.0-96.0); MONO # 0.8 10^3/uL (0.0-0.8); MONO % 13.8 % (0.0-5.0); NEUTROPHILS % 52.6 % (36.0-66.0); PLATELET COUNT, AUTOMATED 208 10^3/uL (150-450); RED CELL DISTRIBUTION WIDTH 13.4 % (11.5-14.5); WHITE BLOOD COUNT 5.7 10^3/uL (4.0-10.0)
[2017-05-29] MEDS: METOPROLOL SUCC *XL* 25MG TAB (TopROL *XL*) PO SCH (09:00)
[2017-05-29] MEDS: HumaLOG INSULIN (NovoLOG) PER UNIT SC SCH ×4 (09:11→21:00)
[2017-05-29] MEDS: DABIGATRAN ETEXILATE 75 MG CAP (PRADAXA) PO SCH (09:11)
[2017-05-29 16:56] LABS: MEAN CORPUSCULAR HEMOGLOBIN 30.5 pg (27.0-33.0); MEAN CORPUSCULAR HGB CONC 32.8 g/dl (32.0-36.5); MEAN CORPUSCULAR VOLUME 92.8 fl (80.0-96.0); RED CELL DISTRIBUTION WIDTH 13.7 % (11.5-14.5); WHITE BLOOD COUNT 6.1 10^3/uL (4.0-10.0)
[2017-05-29] MEDS: PRAVASTATIN 20 MG TAB PO SCH (21:53)
[2017-05-29 22:00] VITALS: BP 119/60
[2017-05-30 06:00] VITALS: BP 140/66
[2017-05-30 06:24] LABS: ALBUMIN 2.9 GM/DL (3.2-5.2); ALBUMIN/GLOBULIN RATIO 1.04 (1.00-1.93); BILIRUBIN,TOTAL 0.4 MG/DL (0.2-1.0); CALCIUM LEVEL 8.7 MG/DL (8.8-10.2); CREATININE FOR GFR 0.98 MG/DL (0.55-1.02); MAGNESIUM LEVEL 2.2 MG/DL (1.8-2.4); POTASSIUM SERUM 3.8 MEQ/L (3.5-5.1); TOTAL PROTEIN 5.7 GM/DL (6.4-8.2)
[2017-05-30] MEDS: HumaLOG INSULIN (NovoLOG) PER UNIT SC SCH ×4 (08:25→20:34)
--- NOTE | 2017-05-30 12:45 | IPN ---
DATE: 05/30/2017 The patient is seen today on [facility]. She was signed out to me by Dr. Flores. It sounds as if there were plans to discharge her yesterday, but then her hemoglobin dropped and her Pradaxa was discontinued. She was admitted with gastrointestinal (GI) bleed. She was transfused and had an esophagogastroduodenoscopy (EGD) that was unrevealing. She reports that her stools are becoming more normal in color, now brownish instead of black and maghogany. She is not having any shortness of breath. Does have some palpitations. Does not have any chest pains. No abdominal pains. It has been noted that her pulse has been as high as 175 when she has been up moving around and both this morning and yesterday there were reports of 3-second pauses that were asymptomatic on her yard pipe grader. Her current medication regimen calls for her to receive sliding scale Humalog insulin and pravastatin. Her Pradaxa was discontinued yesterday. Metoprolol was not administered yesterday I believe due to the pulse issues and she has not received any this morning. On examination, her temperature is 98.3, blood pressure 140/60, pulse is 80 and irregular, respirations 18, oxygen saturation 98% on room air. She is alert, pleasant and cooperative, not in any distress. There is no neck masses, tenderness or adenopathy. No carotid bruits. Her lungs are clear. Heart is slightly irregular without any murmur, click or gallop that I can hear today. Abdomen is soft and nontender. There is no edema. Compared to when I saw her on the day of her admission, her color is much better and she seems less fatigued, although she does maintain a certain amount of masked facies and there is a slight tremor. Labs today show hemoglobin of 10.6, it was 10.2 yesterday and 11.9 two days earlier. Chemistries today showed BUN of 19, creatinine 0.98, calcium 8.7 and potassium 3.8. ASSESSMENT: 1. GI bleeding. EGD negative. Hemoglobin dropped yesterday. She is off all anticoagulants at this time. 2. Atrial fibrillation, chronic. She is having both bradycardia and tachycardia on her current dose of metoprolol, which has been discontinued. 3. History of CVA. Continue to monitor. 4. Acute on chronic anemia. Normally, she runs about 10.9 with her hemoglobin. 5. Diabetes mellitus. Only on insulin coverage. PLAN: I reviewed the monitor strips which indeed show some episodes of tachycardia, but also more normal rates. On my observation, I did not see any 3-second pauses, but the staff was trying to print those out. I have asked Dr. Yancey to come and consult on her to see what he feels is the best course, both in terms of her control of atrial fibrillation and her anticoagulation. Concern is that she has got a pacemaker in her future. The other concern is we do not want to restart her on her anticoagulants not knowing where the site of bleeding might have been. LORRIE
[2017-05-30 14:00] VITALS: BP 136/69
[2017-05-30] MEDS ORDERED: ENOXAPARIN 60 MG/0.6 ML SYR (J1650) SC ONE (18:00)
[2017-05-30] MEDS: PRAVASTATIN 20 MG TAB PO SCH (20:39)
[2017-05-30 22:00] VITALS: BP 142/61
--- NOTE | 2017-05-30 22:47 | CR ---
DATE OF CONSULTATION: 05/30/2017 CARDIOLOGY CONSULTATION REFERRING PHYSICIAN: Dr. Hernandez with copy to Dr. Deluna INDICATION: Atrial fibrillation with intermittent slow ventricular responses. HISTORY: This 81-year-old mother of two grown children, retired resident of [place], [place], describes being remarkably active despite her age, including exercising in a gym for 30-60 minutes 5 days of the week. She will use elliptical glider for 30 minutes and specifically denies any history of chest discomfort, shortness of breath, palpitations, dizziness, fall. She presented to Dr. Deluna's office 05/25/2017 with history of dark/black stools for several days accompanied by feeling fatigued. Dr. Hernandez was covering in his absence, and the patient was found to have guaiac-positive stools and anemia leading to her current admission. The patient has a history of longstanding hypertension complicated by chronic atrial fibrillation, presenting with right-sided numbness and weakness/ cerebrovascular accident (CVA) June 2012. She has been on metoprolol, negative chronotropic therapy, and oral anticoagulation since. According to serial followup progress notes at Dr. Deluna's [facility] , her pulse had been quite regular in the 50s and 60s until 12/31/2016, when note is made of an irregularity to her pulse with rate averaging 86 beats per minute (BPM). At the time of her admission May 25, her EKG showed atrial fibrillation with ventricular response averaging 104 beats per minute, and serial vital signs had shown a controlled rate averaging 80 BPM. However, on telemetry 3-second pauses in ventricular activity were observed shortly after midnight this morning and again at 6:28 a.m. while up in the bathroom. Both episodes were asymptomatic. At apparently 8:20 this morning a brief recording of ventricular response of 170 beats per minute was documented. Again the patient was not symptomatic. Cardiology consultation was placed to consider a permanent pacemaker implant. OTHER PAST CARDIAC HISTORY: Longstanding hypertension with abnormal EKG dating back to at least September [address]-T-wave abnormalities. Because of her coronary risk factors, she did undergo a treadmill thallium heart scan that confirmed a favorable prognosis at that time. She completed six and half minutes of treadmill exercise using the standard Kali protocol, stopping with fatigue and dyspnea. No chest pain. Her rhythm at that time was sinus with occasional premature ventricular contractions (PVC). On 07/05/2012 presented to [facility] with cerebrovascular accident (CVA). Deemed a candidate for tissue plasminogen activator (TPA) and had a very positive response. On admission was in sinus rhythm but on telemetry subsequently had paroxysmal atrial fibrillation. Echocardiogram performed showed normal left ventricular size, borderline left ventricle hypertrophy, left ventricular ejection fraction (LVEF) of 60% with no localized wall motion abnormality. Left atrial size upper limits of normal with normal estimated mean left atrial pressure. Normal right heart chamber sizes with borderline pulmonary hypertension (right ventricular systolic pressure [RVSP] 30 mm of mercury). Valvular appearance and function were normal. There was a very small pericardial effusion. Serial x-ray reports dating back to at least 2005, have shown least heart size upper limits of normal with slightly tortuous thoracic aorta , but no heart failure. On 06/30/2014, bilateral carotid ultrasound was performed because of bruit, reported as showing atheromatous plaque bilaterally with less than 50% stenosis in her carotid arteries. 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 Followup study 04/29/2017 again showed nonobstructive bilateral internal carotid obstructive plaques. Left vertebral artery was not visualized, but there was normal right vertebral artery flow. CARDINAL CARDIAC SYMPTOMS: As mentioned, she denies any history of chest, jaw, or arm discomforts with effort. She does have a sensitive left shoulder since her cerebrovascular accident and prior radiation therapy for cancer of the breast. Since her stroke has occasional cough productive of clear sputum. Denies orthopnea. Sleeps well. Claims to have never had an awareness of her heart action. Denies any history of dizziness, fall, or loss of consciousness but has had episodic fatigue. Last week she had momentary confusion associated with a blood pressure systolic in the 60s. According to her daughter, her pulse at the time, was not remarkable; running in the 70s or 80s. Amlodipine was discontinued without recurrent problem. 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 On oral anticoagulation, no further problem. No history of claudication, varicose veins, ankle swelling, or prior phlebitis. CORONARY RISK FACTORS: Advanced age, longstanding hypertension, non-insulin dependent diabetes mellitus, hypercholesterolemia, and prior longstanding heavy smoker, stopping in the remote past. Been no family history of premature coronary heart disease. OTHER PAST MEDICAL HISTORY: 1. Two normal vaginal deliveries. 2. Prior hemorrhoidal bleeding and history of diverticulosis 2000. 3. Gastrointestinal (GI) bleeding with upper endoscopy showing no hiatal hernia or peptic ulcer disease. 4 Prior CVA with ongoing right sided hemiparesthesia. 5. In 2005, cancer of the breast with lumpectomy and subsequent radiation therapy. 6. Remote unilateral oophorectomy and appendectomy. REVIEW OF SYSTEMS: Denies any fever, chills, or weight loss. Wears corrective lenses, contact lenses. No history of thyroid dysfunction. No GI complaints other than recent black, tarry stools. Denies urinary complaint or known renal insufficiency. No environmental allergies. No musculoskeletal complaints. All other systems review was negative. MEDICATIONS: A the time of her admission she was taking: - metoprolol succinate 25 mg daily - Pradaxa 150 mg twice a day - losartan 100 mg with hydrochlorothiazide 12.5 mg one tablet daily - pravastatin 40 mg by mouth at bedtime - vitamin B complex - Questran 4 grams per dose, one-half scoop orally daily - calcium with vitamin D one tablet daily - metformin 1 gram twice a day ALLERGIES: None known. PHYSICAL EXAMINATION: CONSTITUTIONAL: Bright, alert, elderly lady, admitting to having some memory problems following her CVA as well as having some numbness of her right side but no current weakness of that side. Slightly pale. Lying comfortably with the head of bed elevated 30 degrees. Medium body build. VITAL SIGNS: Heart rate 74 BPM and irregular, blood pressure 130/70 supine, 128/68 sitting with legs dependent (measured only on the left arm due to hypersensitivity of her right arm), respiratory rate 16 per minute, oxygen saturation 98% on room air. Afebrile. Weight 141 pounds, height to 62 inches, body mass index (BMI) 25.8. EYES: Normal conjunctivae and lids. No icterus. ENT/MOUTH: Teeth in good repair. Normal oral moisture. No central cyanosis. NECK: Trachea midline. Thyroid not enlarged. Jugular veins were not elevated. RESPIRATORY: Normal-appearing chest configuration and chest expansion with good air entry over both lung hinds and no abnormal pulmonary adventitious sounds. CARDIOVASCULAR: Apical impulse at the midclavicular line 5th intercostal space. S1 and S2 were variable. No audible gallop or murmur. No rub. Normal carotid upstrokes but variable volume related to her arrhythmia. No audible bruit. Upper extremity, femoral, and pedal pulses appeared to be symmetrical and normal. There were no varicose veins or dependent edema. Her abdominal aorta was not palpable. No bruits. GASTROINTESTINAL: Soft, nontender abdomen with no hepatosplenomegaly. Normal bowel sounds. Rectal examination not indicated, as this has been performed recently. MUSCULOSKELETAL: No obvious joint deformities. Normal-appearing muscular tone and strength. Normal spine curvature. NEUROLOGIC/PSYCHIATRIC:. Bright, alert, and oriented. Tried well to provide an adequate history. Was supported by her family/corroborated by her family. Currently normal symmetrical eye, facial, and extremity movements. No abnormal movements. She had some resting tremor of her right hand. SKIN: Slight pallor but no ecchymotic lesions, rash, or icterus. INVESTIGATIONS: Posterior-anterior (PA) and left lateral chest x-ray showed at least borderline cardiomegaly with CT ratio of 14:28. Her thoracic aorta was unfolded with some calcification of the aortic arch. Pulmonary vasculature was normal. No infiltrate or pleural effusion. Some degenerative changes and compression of vertebral bodies on the lateral projection. EKG: Study performed on her admission was reviewed independently and shows atrial fibrillation with a ventricular response of 104 BPM. Somewhat low limb voltages with slow precordial R-wave progression and diffuse nonspecific ST-T-wave abnormalities. Her rhythm represents a change from our last available EKG 07/04/2012, showing sinus at that time. Repolarization abnormalities were quite similar. LABORATORY DATA: Blood work today shows a hemoglobin of 10.6, and this has essentially been stable but measured 8.9 when she was admitted. She received 2 units of packed red blood cells. Normal white blood cell count and platelet count. Curiously, on her Pradaxa, measured PT was 41.8 and INR 4.9 on admission with PTT 78. Chemistry today showed electrolyte balance with BUN 19, creatinine were 0.98, fasting glucose 132. Serum magnesium 2.2. Normal liver function studies. Ultra sensitive TSH 04/15/2017 was 4.5. Serial Troponin I levels were negative on admission. Last lipid profile from 03/13/2016 showed a total cholesterol of 141 , HDL 50, LDL 54, triglycerides 183, total/HCL ratio 2.8. Urinalysis was trace positive for blood but no pus cells or protein. IMPRESSION/PLAN: 1. Atrioventricular (AV) block (unspecified): She clearly has a degree of degenerative conduction tissue disease, as the expected ventricular response to atrial fibrillation without medication is between 140 and 160 bpm. On no more than metoprolol succinate 25 mg daily, she has had a controlled ventricular response documented in Dr. Deluna's office. Two brief asymptomatic 3-second pauses were documented here, and her metoprolol succinate has been discontinued. Current heart rates are controlled. If she remains free of further significant pause off this medication and no nonphysiologically fast heart rates are observed, then I believe a permanent pacemaker can be avoided. The patient is quite reluctant to have anything invasive done. I have tentatively placed her nothing by mouth after midnight and starting Ringer's lactate at 50 mL an hour starting tomorrow morning, just as a precautionary measure. 2. Atrial fibrillation (chronic): Initailly paroxysmal, apparently sustained we believe since at least last December. Has been free of any awareness of her heart action and rate had been controlled on low-dose metoprolol succinate, as mentioned. This latter agent was been discontinued earlier today due to her asystolic pauses. Our intent is to have her ambulate while in hospital to assess her ventricular response. If nonphysiologically rapid heart rates are documented, permanent pacemaker implant would definitely be indicated, as discussed with the patient and her family. In Has been off oral anticoagulant since admission due to GI bleeding. light of her history of embolic stroke, I have given the patient a single dose of Lovenox 60 mg subcutaneous now. Her PT/INR/PTT were all elevated on admission, which can be seen with Pradaxa, but are not reliable for assessing this form of therapy. I believe Eliquis might be a safer choice, as the literature suggests a lower bleeding risk with this agent. 3. Abnormal EKG: Has had repolarization abnormalities dating back to at least 2000 attributed to her hypertensive heart disease. Echocardiogram 2012 showed left ventricular hypertrophy (LVH). She has been free of any chest pain, ST/T wave abnormalities have not changed over these years, and serial cardiac enzymes here have been negative. She describes excellent exercise tolerance for her age. 4. Hypertensive heart disease (benign without heart failure): In order to control her blood pressure in the past, the patient had been on combination metoprolol succinate, losartan/hydrochlorothiazide, and amlodipine. Very recently found to have symptomatic hypotension with associated confusion. In hospital, interestingly, off all of these antihypertensive agents, current blood pressure would be considered well controlled. No symptoms or signs of congestion and describes good exercise tolerance as mentioned. Renal function is normal with no proteinuria. I have discussed the above plan and along with possible need for permanent pacemaker implant with the patient and her family in detail. They appear to understand and agree. As mentioned, the decision to proceed with pacer implant will be based on telemetry shaper setter findings the next 24 hours. I thank you for allowing me to assist in the care of your patient. LORRIE
[2017-05-31] VITALS (7 sets, daily range): BP systolic 88–149; BP diastolic 57–73
[2017-05-31] MEDS ORDERED: LR 1,000 ML IV SCH ×2 (06:00→14:30)
[2017-05-31 07:15] LABS: ALBUMIN 2.9 GM/DL (3.2-5.2); ALBUMIN/GLOBULIN RATIO 0.94 (1.00-1.93); BILIRUBIN,TOTAL 0.5 MG/DL (0.2-1.0); CALCIUM LEVEL 7.7 MG/DL (8.8-10.2); CREATININE FOR GFR 0.98 MG/DL (0.55-1.02); MAGNESIUM LEVEL 2.1 MG/DL (1.8-2.4); POTASSIUM SERUM 3.6 MEQ/L (3.5-5.1)
[2017-05-31] MEDS: HumaLOG INSULIN (NovoLOG) PER UNIT SC SCH ×4 (07:30→21:00)
[2017-05-31] MEDS ORDERED: MIDAZOLAM INJ 2 MG/2 ML VIAL (J2250) As Ordered ONE (13:00)
[2017-05-31] MEDS ORDERED: fentaNYL 100 MCG/2 ML INJECTION (J3010) As Ordered ONE (13:00)
[2017-05-31] MEDS ORDERED: ceFAZolin 2 GM/D5W 50 ML IV BAG (J0690) As Ordered ONE (13:14)
[2017-05-31] MEDS ORDERED: LIDOCAINE 1% SDV INJ 30 ML VIAL As Ordered ONE (13:14)
[2017-05-31] MEDS ORDERED: PROPOFOL 200 MG/20 ML VIAL As Ordered ONE (13:45)
[2017-05-31] MEDS ORDERED: LIDOCAINE 2% INJ 100 MG/5 ML SDV (FOR ANES.) As Ordered ONE (13:45)
[2017-05-31] MEDS ORDERED: ONDANSETRON 4MG/2ML VIAL (J2405) IV PRN (14:30)
--- NOTE | 2017-05-31 14:51 | REP ---
Portable chest x-ray: Sitting AP view. History: Status post pacemaker insertion. Comparison study: May 25, 2017. Findings: A left transvenous pacemaker is inserted into the right heart via the left side. Skin milka are seen. There is no evidence of pneumothorax or hydrothorax. Heart is mildly enlarged. The aorta is calcific and tortuous. Pulmonary vasculature is not increased. Impression: Pacemaker in place. Cardiomegaly. No complication identified. Signed by Derrick Wheeler MD 05/31/2017 03:09 P
[2017-05-31] MEDS ORDERED: ACETAMINOPHEN TAB 650MG DOSE (2X325MG) PO PRN (15:00)
--- NOTE | 2017-05-31 15:00 | REP ---
Single view chest: Intraprocedural view. History: Pacemaker insertion. 47 seconds of fluoroscopy time is reported. Findings: A single last image hold fluoroscopic spot radiograph of the chest documents right heart pacemaker wire. Signed by Derrick Wheeler MD 05/31/2017 03:09 P
[2017-05-31 17:26] LABS: MEAN CORPUSCULAR HEMOGLOBIN 30.8 pg (27.0-33.0); MEAN CORPUSCULAR HGB CONC 33.7 g/dl (32.0-36.5); MEAN CORPUSCULAR VOLUME 91.5 fl (80.0-96.0); RED CELL DISTRIBUTION WIDTH 13.5 % (11.5-14.5); WHITE BLOOD COUNT 5.8 10^3/uL (4.0-10.0)
--- NOTE | 2017-05-31 18:22 | IPN ---
DATE: 05/31/2017 The patient was seen today on [facility]. This afternoon she went to the operating room (OR) and received a single chamber pacemaker. She was still evidencing high-grade atrioventricular (AV) block despite being off of her beta-gina. She feels quite comfortable at this time although she notes that her local anesthetic is wearing off and it is starting to ache where her pacemaker was implanted. She denied any shortness of breath, not having any palpitations. No nausea, vomiting or abdominal pain, not having any leg swelling. She has not had any bloody stools. On examination, her most recent vital signs show temperature of 96.8, pulse 81, blood pressure 169/78, pulse oximetry is 97% on room air, respirations 18. She is awake and alert, not at all in any distress. Her eyes are clear. Speech is clear. Lungs show no rales, wheezes or rhonchi. Heart has a slightly irregular rhythm. Not hearing any murmur, click or gallop. There is no edema. 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 I noted that she did not have a repeat hemoglobin today. Her BUN, however, was 16, creatinine 0.8, sodium 141, potassium 3.6, glucose 119, her calcium is low at 7.7 but her albumin is low at 2.9. Her postoperative chest x-ray showed no pneumothorax or hemothorax. ASSESSMENT: 1. Gastrointestinal (GI) bleeding. EGD negative. No symptomatic bleeding at this time. 2. Atrial fibrillation, chronic. 3. Atrioventricular (AV) block, now has a pacemaker. 4. History of CVA. 5. Acute on chronic anemia. 6. Diabetes mellitus. PLAN: Dr. Yancey has written orders for the patient to start Coreg today and Eliquis tomorrow. His feeling is that there is less bleeding risk on Eliquis than there is on Pradaxa. She will remain on her pravastatin. She is on sliding scale insulin in case she needs that. He has not recommended any angiotensin-converting enzyme (ASHLEY) inhibitor or angiotensin receptor gina as of late. She should be able to be discharged in a few days and continue to monitor her hemoglobin. [facility]
[2017-05-31] MEDS ORDERED: NS 1,000 ML IV ONE (20:45)
--- NOTE | 2017-05-31 20:59 | ECGEPIP ---
Stationary ECG Study 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
[2017-05-31] MEDS: CARVedilol 6.25 MG TAB PO SCH (21:00)
[2017-05-31] MEDS: PRAVASTATIN 20 MG TAB PO SCH (22:01)
[2017-06-01 02:00] VITALS: BP 103/73
--- NOTE | 2017-06-01 03:16 | DSES ---
DATE OF ADMISSION: 05/25/2017 DATE OF DISCHARGE: ATTENDING PHYSICIAN: Tanya Barr DO PRIMARY CARE PROVIDER (PCP): Dr. Redd Deluna HISTORY OF PRESENT ILLNESS: This is an 81-year-old female with past medical history of chronic atrial fibrillation on Pradaxa, who had noticed dark, tarry stools approximately 3 days prior to her presentation to the emergency department (ED). She was having some difficulty with feeling fatigued, weak, and was found to have a positive guaiac in her PCP's office. Was subsequently sent to the ED for further evaluation. On presentation to the ED, patient had hemoglobin and hematocrit of 8.9 and 26.8. She was subsequently transfused 2 units of packed red cells and admitted to the family medicine service. HOSPITAL COURSE: Patient's hemoglobin and hematocrit continued to remain stable throughout hospitalization. Her Pradaxa was held. Of note, patient did present with an elevated INR of 4.09 without taking any warfarin. Her INR did come down to 1.37, 1.21 on 05/27/2017, on 05/28/2017, 1.07. She did resume her Pradaxa at a half dose of 75 mg by mouth twice a day on 05/28/2017. On 05/29/2017, patient's INR is 1.33. Patient did have imaging completed of her liver due to elevated INRs with unknown etiology. It did show a mildly dilated gallbladder with a 0.8 cm calculus; otherwise, findings were negative. Patient is having normal regular bowel movements. They are less dark in nature. She denies abdominal pain, dizziness, or weakness. Most recent hemoglobin and hematocrit are 11.9 and 35.2. Patient overnight had a 2-second pause on telemetry with some bradycardia into the 47 range. Her amlodipine has been held during her hospitalization secondary to presentation with hypotension and hypovolemia due to acute blood loss. She has been taking her metoprolol XL 25 mg by mouth daily due to her atrial fibrillation (AFib) while in the hospital. ON PHYSICAL EXAM: VITAL SIGNS: Are stable. She is afebrile. HEENT: Neck is supple without lymphadenopathy or jugular venous distention (JVD). CARDIOVASCULAR: Heart rate, rhythm irregular. PULMONARY: Lungs are clear. ABDOMEN: Is soft and nontender throughout. Patient is ambulating back and forth to the bathroom independently without any difficulty. NEUROLOGIC: She is alert and oriented times three. PSYCHIATRIC: Affect is appropriate and congruent. PROCEDURES: Patient is status post esophagogastroduodenoscopy (EGD) with Dr. Fabián Can, which proved negative. IMAGING: Liver ultrasound as already stated, as well as chest x-ray on presentation to the ED, which proved degenerative changes in the thoracic spine and thoracic aorta; otherwise, negative. ASSESSMENT/DISCHARGE DIAGNOSES: 1. Acute blood loss secondary to gastrointestinal (GI) bleed on anticoagulation. 2. Elevated INR, unknown etiology. SECONDARY DIAGNOSES: Include: 1. Atrial fibrillation. 2. History of stroke. 3. History of breast cancer in 2005. 4. History of diabetes. 5. History of hyperlipidemia. PLAN: Patient will be discharged home. She will followup with her PCP, Dr. Redd Deluna, on 06/02/2017. Patient will need repeat labs as well as an INR on 06/01/2017. MEDICATIONS: Are as follows: - Pradaxa 75 mg by mouth twice a day (Patient is being sent home with half dose secondary to the GI bleed as well as a creatinine clearance of less than 50.) - vitamin B complex - calcium and vitamin D one tablet daily - cholestyramine powder by mouth daily - metformin 500 mg two by mouth twice a day with meals - multivitamin one daily - pravastatin 40 mg by mouth nightly Medications that were held include patient's amlodipine, losartan, and metoprolol secondary to a 2-second pause and stable blood pressure while both amlodipine and losartan were held as an inpatient. Patient will need to followup with Dr. Deluna regarding this. The patient has remained asymptomatic throughout her hospitalization, and pause occurred while patient was at rest. Patient is discharged in stable and satisfactory condition with no further questions at time of discharge. ADDENDUM: Patient's hemoglobin from this morning came back at 10.2 and 30.8, which is lower than her 11.9 and 35.2 levels. Given the fact that her INR is also slightly elevated at 1.33 with resumption of patient's Pradaxa, I am going to go ahead and hold her Pradaxa completely and patient can followup with primary care provider (PCP) as an outpatient. Edited: shey 05/29/2017 [id number]
--- NOTE | 2017-06-01 05:36 | RO ---
DATE OF PROCEDURE: 05/31/2017 PROCEDURE: Implantation of a single chamber ventricular demand pacemaker. IMPLANTING SHELLACKER: Dr. Dominguez Yancey ANESTHESIOLOGIST: Dr. Paulino PREOPERATIVE DIAGNOSIS: Chronic atrial fibrillation/intermittent high-grade atrioventricular (AV) block. POSTOPERATIVE DIAGNOSIS: Chronic atrial fibrillation/intermittent high-grade atrioventricular block. TYPE OF ANESTHESIA: Monitored local anesthesia. DESCRIPTION OF PROCEDURE: In the fasting state following informed consent and Ancef 2 grams IV premedication, the patient was taken to the operating theater. Numerous skin electrodes were applied to facilitate continuous electrocardiographic monitoring. The left subclavian region was prepped and draped in the usual fashion and the skin was infiltrated with 1% Xylocaine. The left axillary vein was catheterized using the micropuncture technique and a 5 cm linear incision was made several centimeters below and parallel to the left clavicle. Dissection was carried down to the level of the pectoralis fascia and a pocket was fashioned below the level of the incision line. A single bipolar screw-in active fixation steroid eluting pacing was then positioned to the right ventricular apex under fluoroscopic and electrocardiographic control. The right ventricular lead ([employer], model number [id number], MRI compatible, serial number [id number]) measurements were: Stimulation threshold 0.75/0.4 ms/impedance 730 ohms. The capital R wave amplitude measured 12.0 mV. This lead was secured in position with sleeves sutured at its insertion site. It was then connected to a single chamber pulse generator ([employer], model number [id number], serial number [id number]) and appropriate VVI pacing was documented. The generator was placed and the pocket was secured in position with a suture through the upper right-hand corner of the epoxy header. The subcutaneous tissues were approximated using a running chromic suture and the skin was closed using milka. Dry dressing was applied. The patient was returned to the recovery room in good condition. No apparent complications. Estimated blood loss less than 50 mL. Postoperative portable upright chest x-ray showed good lead position in the RV apex without pneumothorax. Her postoperative EKG at this time shows underlying atrial fibrillation with controlled ventricular response not significantly changed from her admission tracing. Her device at this point is sensing her spontaneous activity and inhibited. Our plan is to monitor the patient in hospital at least overnight and she will receive an additional three doses of Ancef 1 gram IV every 8 hours. Tomorrow morning, we will be resuming oral anticoagulation with Eliquis 2.5 mg twice a day and hopefully she will not have recurrent gastrointestinal (GI) bleeding. We will also plan on resuming her negative chronotropic therapy using carvedilol 6.25 mg twice a day to help control her ventricular response to her atrial fibrillation as well as control her blood pressure. I will be monitoring her closely while she is in hospital.
[2017-06-01 06:00] VITALS: BP 107/75
[2017-06-01 06:32] LABS: ALBUMIN 2.8 GM/DL (3.2-5.2); ALBUMIN/GLOBULIN RATIO 1.08 (1.00-1.93); ALKALINE PHOSPHATASE 42 U/L (45-117); ALT/SGPT 15 U/L (12-78); ANION GAP 9 MEQ/L (8-16); AST/SGOT 13 U/L (15-37); BILIRUBIN,TOTAL 0.4 MG/DL (0.2-1.0); BLOOD UREA NITROGEN 11 MG/DL (7-18); CALCIUM LEVEL 7.8 MG/DL (8.8-10.2); CARBON DIOXIDE LEVEL 23 MEQ/L (21-32); CHLORIDE LEVEL 111 MEQ/L (98-107); CREATININE FOR GFR 0.91 MG/DL (0.55-1.02); GLOMERULAR FILTRATION RATE > 60.0 (>32); GLUCOSE, FASTING 128 MG/DL (83-110); MAGNESIUM LEVEL 2.1 MG/DL (1.8-2.4); POTASSIUM SERUM 3.9 MEQ/L (3.5-5.1); SODIUM LEVEL 143 MEQ/L (136-145); TOTAL PROTEIN 5.4 GM/DL (6.4-8.2)
[2017-06-01] MEDS: HumaLOG INSULIN (NovoLOG) PER UNIT SC SCH ×4 (08:37→21:00)
[2017-06-01] MEDS: APIXABAN 2.5 MG TAB (ELIQUIS) PO SCH ×2 (08:37→20:26)
[2017-06-01] MEDS: CARVedilol 6.25 MG TAB PO SCH ×2 (08:39→20:23)
--- NOTE | 2017-06-01 09:50 | REP ---
Chest two views HISTORY: Pacemaker insertion Comparison: 05/31/2017 The lungs are clear. The heart is normal in size. The pulmonary vasculature is normal in appearance. The cardiac silhouette is enlarged. The patient is status post pacemaker insertion. Metal milka are present. IMPRESSION: Cardiomegaly. Signed by Regan Lee MD 06/01/2017 09:41 A
[2017-06-01 10:00] VITALS: BP 112/57
--- NOTE | 2017-06-01 11:48 | IPNPDOC ---
Subjective Date Seen The patient was seen on 06/01/17. Subjective Chief Complaint/HPI The patient is a 81-year-old female admitted with a reason for visit of Blood Stool Dizziness. Events since last encounter Pt with her dgt at bedside. She is doing well. She is eager to get home. Pain is controlled. Constitutional: Denies: Chills, Fever Pulmonary: Denies: Dyspnea, Cough Cardiovascular: Denies: Chest Pain, Palpitations Gastrointestinal: Denies: Nausea, Vomiting, Diarrhea Psych: Reports: Mood Normal Objective Physical Examination General Exam: Positive: Alert, No Acute Distress Neck Exam: Positive: Supple, Negative: JVD, thyromegaly Chest Exam: Positive: Clear to auscultation, Normal air movement Heart Exam: Positive: Rate Normal, Regular Rhythm, Normal S1, Normal S2, Negative: Murmurs, Rubs Telemetry: Positive: No significant arrhythmia Abdomen Exam: Positive: Normal bowel sounds, Soft, Negative: Tenderness, Hepatospenomegaly Female Exam: Positive: Nl Ext Genitalia, Negative: Lesions, Discharge, Odor, Tenderness Extremity Exam: Positive: Normal pulses, Negative: Clubbing, Cyanosis, Edema Skin Exam: Positive: Nl turgor and temperature, Negative: Rash, Breakdown Psych Exam: Positive: Mental status NL, Mood NL, Oriented x 3 Assessment /Plan Problems (1) AV block Status: Acute Response to Treatment: Stable, Improving Discussed With: Patient Problem Specific Plan: Consult Specialist, Monitor Clinically Problem Text: Dr Yancey was consulted and placed a pacemaker on 05/31/17. Coreg started, Pradaxa changed to Eliquis. (2) GI bleed Status: Acute Problem Specific Plan: Consult Specialist Problem Text: 06/01/17 - Hgb remains, stable, she reports no signs of active bleeding. She has been changed from Pradaxa to Eliquis by Cardio. Monitor Hgb 1-2 days before d/c 05/28/17: EGD negative.Resume full op diet. Resume PRadaxa at lower dosing and monitor. Patient had INR of 4.0 on presentation in absence of Warfarin use. Liver US negative. Will monitor. repeat INR daily. 05/27/17: planned EGD this am. + black stools with + guaiac at PCPs office. will call gastro for evaluation. (3) Atrial fibrillation Status: Chronic Response to Treatment: Stable Problem Specific Plan: Monitor Clinically Problem Text: Rate controlled, on Coreg, Pradaxa. (4) History of CVA (cerebrovascular accident) Status: Chronic Response to Treatment: Stable Problem Specific Plan: Monitor Clinically Problem Text: CVA in 2012 (5) Chronic anemia Status: Chronic (6) Diabetes mellitus Status: Chronic Problem Specific Plan: Monitor Clinically Plan/VTE VTE Prophylaxis Ordered?: Yes (Eliquis) Plan Family Medicine Attending Note: I saw and examined Ms. Benites, discussed with KSENIA Rodríguez. Agree with their note as documented. Ms. Benites is doing well and has remained in stable condition today; this includes her hemoglobin levels as well as her heart. Eliquis was restarted today. As long as she maintains her hemoglobin levels without bleeding I anticipate she will be discharged [facility] next 1-2 days. I suspect that physical therapy and passing her home safety evaluation is currently her largest barrier to discharge. 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, 24H, Fishbone Vital Signs/I&O Vital Signs Date Time Temp Pulse Resp B/P (MAP) Pulse Ox O2 Delivery O2 Flow Rate FiO2 06/01/17 10:00 97.5 75 18 112/57 (75) 96 Room Air 05/31/17 16:00 2.0 I&O- Last 24 Hours up to 6 AM 06/02/17 06:00 Intake Total 920 ml Output Total 925 ml Balance -5 ml Laboratory Data 24H LABS Laboratory Tests 2 05/31/17 12:05: Bedside Glucose (Misc Panel) 104 05/31/17 14:23: Bedside Glucose (Misc Panel) 104 05/31/17 17:09: Bedside Glucose (Misc Panel) 92 05/31/17 17:19: Nucleated Red Blood Cells % (auto) 0.0 05/31/17 19:57: Bedside Glucose (Misc Panel) 239H 06/01/17 05:57: Anion Gap 9, Glomerular Filtration Rate > 60.0, Blood Urea Nitrogen 11, Creatinine 0.91, Sodium Level 143, Potassium Level 3.9, Chloride Level 111H, Carbon Dioxide Level 23, Calcium Level 7.8L, Aspartate Amino Transf (AST/SGOT) 13L, Alanine Aminotransferase (ALT/SGPT) 15, Alkaline Phosphatase 42L, Total Bilirubin 0.4, Total Protein 5.4L, Albumin 2.8L, Magnesium Level 2.1, Albumin/ Globulin Ratio 1.08 CBC/BMP Laboratory Tests 05/31/17 17:19 Red Blood Count 3.41 L, Mean Corpuscular Volume 91.5, Mean Corpuscular Hemoglobin 30.8, Mean Corpuscular Hemoglobin Concent 33.7, Red Cell Distribution Width 13.5 06/01/17 05:57 Calcium Level 7.8 L, Aspartate Amino Transf (AST/SGOT) 13 L, Alanine Aminotransferase (ALT/SGPT) 15, Alkaline Phosphatase 42 L, Total Bilirubin 0.4, Total Protein 5.4 L, Albumin 2.8 L FRANCISCO SCHULTE PA-C Jun 01, 2017 11:47 am Ariel Cadet MD Jun 01, 2017 9:56 pm
[2017-06-01 14:00] VITALS: BP 101/58
[2017-06-01 18:00] VITALS: BP 108/51
[2017-06-01] MEDS: PRAVASTATIN 20 MG TAB PO SCH (20:26)
[2017-06-01 22:00] VITALS: BP 118/68
--- NOTE | 2017-06-01 22:43 | ECGEPIP ---
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
[2017-06-02 06:00] VITALS: BP 121/64
[2017-06-02 06:16] LABS: MEAN CORPUSCULAR HEMOGLOBIN 30.8 pg (27.0-33.0); MEAN CORPUSCULAR HGB CONC 33.2 g/dl (32.0-36.5); MEAN CORPUSCULAR VOLUME 92.7 fl (80.0-96.0); RED CELL DISTRIBUTION WIDTH 13.5 % (11.5-14.5); WHITE BLOOD COUNT 6.8 10^3/uL (4.0-10.0)
[2017-06-02 06:43] LABS: ANION GAP 5 MEQ/L (8-16); BLOOD UREA NITROGEN 10 MG/DL (7-18); CALCIUM LEVEL 8.7 MG/DL (8.8-10.2); CARBON DIOXIDE LEVEL 29 MEQ/L (21-32); CHLORIDE LEVEL 108 MEQ/L (98-107); CREATININE FOR GFR 0.94 MG/DL (0.55-1.02); GLOMERULAR FILTRATION RATE > 60.0 (>32); GLUCOSE, FASTING 119 MG/DL (83-110); POTASSIUM SERUM 4.3 MEQ/L (3.5-5.1); SODIUM LEVEL 142 MEQ/L (136-145)
[2017-06-02] MEDS: HumaLOG INSULIN (NovoLOG) PER UNIT SC SCH ×4 (07:57→20:42)
[2017-06-02] MEDS: APIXABAN 2.5 MG TAB (ELIQUIS) PO SCH ×2 (07:57→21:09)
[2017-06-02] MEDS: CARVedilol 6.25 MG TAB PO SCH ×2 (08:02→21:09)
--- NOTE | 2017-06-02 11:03 | IPNPDOC ---
Subjective Date Seen The patient was seen on 06/02/17. Subjective Chief Complaint/HPI The patient is a 81-year-old female admitted with a reason for visit of Blood Stool Dizziness. Events since last encounter Pt this morning is feeling well, her dgt is at bedside. They have no new concerns. General: Denies: Fatigue Constitutional: Denies: Chills, Fever Pulmonary: Denies: Dyspnea, Cough Cardiovascular: Denies: Chest Pain, Palpitations Gastrointestinal: Denies: Nausea, Vomiting, Diarrhea Neurological: Denies: Weakness Psych: Reports: Mood Normal Objective Physical Examination General Exam: Positive: Alert, No Acute Distress Neck Exam: Positive: Supple, Negative: JVD, thyromegaly Chest Exam: Positive: Clear to auscultation, Normal air movement Heart Exam: Positive: Rate Normal, Regular Rhythm, Normal S1, Normal S2, Negative: Murmurs, Rubs Telemetry: Positive: No significant arrhythmia Abdomen Exam: Positive: Normal bowel sounds, Soft, Negative: Tenderness, Hepatospenomegaly Female Exam: Positive: Nl Ext Genitalia, Negative: Lesions, Discharge, Odor, Tenderness Extremity Exam: Positive: Normal pulses, Negative: Clubbing, Cyanosis, Edema Skin Exam: Positive: Nl turgor and temperature, Negative: Rash, Breakdown Psych Exam: Positive: Mental status NL, Mood NL, Oriented x 3 Assessment /Plan Problems (1) AV block Status: Acute Response to Treatment: Stable, Improving Discussed With: Patient Problem Specific Plan: Consult Specialist, Monitor Clinically Problem Text: 06/02/17 - she can likely can be d/c tomorrow, once clear by PT if her Hgb remains stable. Dr Yancey was consulted and placed a pacemaker on 05/31/17. Coreg started, Pradaxa changed to Eliquis. (2) GI bleed Status: Acute Problem Specific Plan: Consult Specialist Problem Text: 06/02/17 - hgb increase slightly today, no signs of active bleeding, she is on Eliquis at this point. 06/01/17 - Hgb remains, stable, she reports no signs of active bleeding. She has been changed from Pradaxa to Eliquis by Cardio. Monitor Hgb 1-2 days before d/c 05/28/17: EGD negative.Resume full op diet. Resume PRadaxa at lower dosing and monitor. Patient had INR of 4.0 on presentation in absence of Warfarin use. Liver US negative. Will monitor. repeat INR daily. 05/27/17: planned EGD this am. + black stools with + guaiac at PCPs office. will call gastro for evaluation. (3) Atrial fibrillation Status: Chronic Response to Treatment: Stable Problem Specific Plan: Monitor Clinically Problem Text: Rate controlled, on Coreg, Pradaxa. (4) History of CVA (cerebrovascular accident) Status: Chronic Response to Treatment: Stable Problem Specific Plan: Monitor Clinically Problem Text: CVA in 2012 (5) Chronic anemia Status: Chronic (6) Diabetes mellitus Status: Chronic Problem Specific Plan: Monitor Clinically Plan/VTE VTE Prophylaxis Ordered?: Yes (Eliquis) Plan Therapy: PT (she can likely can be d/c tomorrow, once clear by PT if her Hgb remains stable.) Anticipated Discharge: Home Family Medicine Attending Note: I saw and examined Ms. Benites, discussed with KSENIA Rodríguez. Agree with their note as documented. I had the chance to see her after her physical therapy session. Unfortunately still listed as not safe because she became dizzy after about 5 stairs. She tells me that she can move her bedroom to the first floor and this may not be a problem for her after all. I anticipate that she will be reassessed tomorrow and hopefully she is able to meet the standards to go home. 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, 24H, Fishbone Vital Signs/I&O Vital Signs Date Time Temp Pulse Resp B/P (MAP) Pulse Ox O2 Delivery O2 Flow Rate FiO2 06/02/17 08:02 96 153/99 06/02/17 06:00 96.8 20 96 06/01/17 18:00 Room Air 05/31/17 16:00 2.0 I&O- Last 24 Hours up to 6 AM 06/03/17 06:00 Intake Total 120 ml Output Total 150 ml Balance -30 ml Laboratory Data 24H LABS Laboratory Tests 2 06/01/17 11:50: Bedside Glucose (Misc Panel) 107 06/01/17 16:31: Bedside Glucose (Misc Panel) 159H 06/01/17 20:45: Bedside Glucose (Misc Panel) 119H 06/02/17 05:37: Nucleated Red Blood Cells % (auto) 0.0, Anion Gap 5L, Glomerular Filtration Rate > 60.0, Blood Urea Nitrogen 10, Creatinine 0.94, Sodium Level 142, Potassium Level 4.3, Chloride Level 108H, Carbon Dioxide Level 29, Calcium Level 8.7L CBC/BMP Laboratory Tests 06/02/17 05:37 Red Blood Count 3.57 L, Mean Corpuscular Volume 92.7, Mean Corpuscular Hemoglobin 30.8, Mean Corpuscular Hemoglobin Concent 33.2, Red Cell Distribution Width 13.5, Calcium Level 8.7 L FRANCISCO SCHULTE PA-C Jun 02, 2017 11:03 Ariel Cadet MD Jun 02, 2017 21:05
[2017-06-02 14:00] VITALS: BP 126/82
[2017-06-02] MEDS: PRAVASTATIN 20 MG TAB PO SCH (21:08)
[2017-06-02 22:00] VITALS: BP 131/64
[2017-06-03 06:00] VITALS: BP 121/66
[2017-06-03 06:13] LABS: MEAN CORPUSCULAR HEMOGLOBIN 30.8 pg (27.0-33.0); MEAN CORPUSCULAR HGB CONC 33.7 g/dl (32.0-36.5); MEAN CORPUSCULAR VOLUME 91.6 fl (80.0-96.0); RED CELL DISTRIBUTION WIDTH 13.2 % (11.5-14.5); WHITE BLOOD COUNT 6.4 10^3/uL (4.0-10.0)
[2017-06-03 06:34] LABS: ALBUMIN 2.7 GM/DL (3.2-5.2); ALBUMIN/GLOBULIN RATIO 0.84 (1.00-1.93); ALKALINE PHOSPHATASE 51 U/L (45-117); ALT/SGPT 14 U/L (12-78); ANION GAP 7 MEQ/L (8-16); AST/SGOT 15 U/L (15-37); BILIRUBIN,TOTAL 0.5 MG/DL (0.2-1.0); BLOOD UREA NITROGEN 13 MG/DL (7-18); CALCIUM LEVEL 8.6 MG/DL (8.8-10.2); CARBON DIOXIDE LEVEL 26 MEQ/L (21-32); CHLORIDE LEVEL 109 MEQ/L (98-107); CREATININE FOR GFR 0.91 MG/DL (0.55-1.02); GLOMERULAR FILTRATION RATE > 60.0 (>32); GLUCOSE, FASTING 128 MG/DL (83-110); POTASSIUM SERUM 3.9 MEQ/L (3.5-5.1); SODIUM LEVEL 142 MEQ/L (136-145); TOTAL PROTEIN 5.9 GM/DL (6.4-8.2)
[2017-06-03] MEDS: HumaLOG INSULIN (NovoLOG) PER UNIT SC SCH ×2 (08:18→12:29)
[2017-06-03 08:19] VITALS: BP 160/98
[2017-06-03] MEDS: CARVedilol 6.25 MG TAB PO SCH (08:19)
[2017-06-03] MEDS: APIXABAN 2.5 MG TAB (ELIQUIS) PO SCH (08:19)
[2017-06-03] MEDS ORDERED: CARV6.25 PO (11:27)
[2017-06-03] MEDS ORDERED: ELIQ2.5T PO (11:27)
--- NOTE | 2017-06-03 11:57 | DSES ---
DATE OF ADMISSION: 05/25/2017 DATE OF DISCHARGE: 06/03/2017 Addendum to discharge summary. The original discharge summary was done on 05/29/2017 by Ann Love NP. This will serve as a continuation of discharge summary as that discharge was held for a low hemoglobin level. PRIMARY CARE PROVIDER: Dr. Redd Deluna ATTENDING PHYSICIAN: Dr. Ariel Cadet CONSULTANTS: Dr. Yancey Please see Ann Love's discharge summary from 05/29/2017 for prior hospital course. As noted in Ann Love's discharge summary, on day of potential discharge, the patient was found to have a low hemoglobin level and therefore discharge was called off. Pradaxa was discontinued at that time. She was noted to be tachycardiac with pauses. Cardiology was consulted and Dr. Yancey did come and see the patient and arrangements for pacemaker were made. The patient underwent implantation of pacemaker with Dr. Yancey and reportedly did well status post procedure. Dr. Yancey changed the patient's beta gina to Coreg and he started her on Eliquis as his feeling is there is a less bleeding risk on the Eliquis than on the Pradaxa. For the remainder of hospitalization, hemoglobin did stay relatively stable. The patient worked with physical therapy and was felt to be safe for discharge home on day of discharge. The patient reported no further bleeding during the remainder of the course of her hospitalization. She will be discharged home with followup with her primary care provider, Dr. Deluna, and followup with her social scientist, Dr. Yancey. PHYSICAL EXAMINATION Vitals: Temperature 97.4, pulse 79, respiratory rate 20, blood pressure is 121/66, pulse ox 97% on room air. GENERAL: The patient is alert, no acute distress. No respiratory distress. CHEST: Clear to auscultation bilaterally. HEART: Regular rate and rhythm. ABDOMEN: Positive bowel sounds, soft, nontender. EXTREMITIES: No edema. LABORATORY DATA: WBC 6.4, hemoglobin 10.3, hematocrit is 30.6, platelets is 185. Sodium 142, potassium 3.9, chloride 109, carbon dioxide 26, BUN 13, creatinine 0.91, glucose 128, calcium 8.6, total bilirubin 0.5, AST 15, ALT 14, alkaline phosphatase 51, total protein 5.9, albumin 2.7. MEDICATIONS: - Eliquis 2.5 mg by mouth twice a day - carvedilol 6.25 mg by mouth twice a day - calcium with vitamin D by mouth daily - Glucophage 500 mg by mouth twice a day - multivitamin by mouth daily - Pravachol 40 mg by mouth at night - Cholestyramine 4 grams by mouth daily DISCHARGE INSTRUCTIONS: Followup with Dr. Deluna next week. Followup with Dr. Yancey next week as per his instructions. Diet is consistent carbohydrate, no added salt, low-cholesterol, low-fat. Activity as tolerated. Home health care referral. The patient will be discharged home if her Eliquis is covered by insurance and patient and family services (PFS) and nursing are checking on that. DISCHARGE DIAGNOSES: 1. AV block/status post pacemaker implantation. 2. GI bleed. 3. Atrial fibrillation. 4. History of CVA. 5. History of anemia. 6. Diabetes mellitus. As noted, this discharge summary serves as an addendum to the discharge summary from Ann Love NP and Dr. Barr that was created on 2016. Family Medicine Attending Note: I saw and examined his call, discussed with eugenio. We discussed the details of her discharge and I reviewed his discharge plan while she was still in the hospital. I agree with his note as documented above. 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
[2017-06-03 14:00] VITALS: BP 127/58
--- NOTE | 2017-06-07 17:03 | CR ---
DATE OF CONSULTATION: 05/27/2017 REASON FOR CONSULTATION: This is an 81-year-old white female who was seen in consultation for anemia of unclear etiology on 05/27/2017. The patient apparently was admitted to [facility] ([facility]) on 05/25/2017, with a history of multiple medical problems including chronic atrial fibrillation apparently on Pradaxa. She has a history of right breast lumpectomy with radiation, right upper (please clarify) 05/1975. She had upper endoscopy and colonoscopy by myself in 2008. The patient apparently noticed dark stools approximately 3-4 days prior to admission. She had been feeling generalized fatigue. She had no complaints of nausea, vomiting, hematemesis, melena, hematochezia or bright blood per rectum. The patient was found to be guaiac-positive. PAST MEDICAL HISTORY: 1. Atrial fibrillation. 2. History of cerebrovascular accident (CVA) 2011. 3. Anemia. 4. Breast cancer 2005 on the right. 5. Upper endoscopy and colonoscopy in 2008. SOCIAL HISTORY: Cigarettes, alcohol negative. FAMILY HISTORY: Noncontributory to the above problems: REVIEW OF SYSTEMS: 11- point review of systems was unremarkable. PHYSICAL EXAMINATION: GENERAL: Is a well-developed white female who appears stated age. CHEST: Clear to auscultation. CARDIOVASCULAR EXAM: Showed an irregular rhythm. No murmurs or gallops. Normal physiological split S1 and S2. ABDOMEN: Soft, nontender. No masses, guarding, rebound, hepatosplenomegaly. Bowel sounds positive. LABORATORY DATA: Laboratory studies on admission showed a hemoglobin of 8.9, hematocrit 26.8. During the hospital course which was essentially so far benign, the patient has received two units of packed cells. ANALYSIS: Anemia of unclear etiology in a patient who is on chronic anticoagulation for atrial fibrillation. PLAN: Plan will be to set the patient up for an upper endoscopy for evaluation of her dark stools. Plan was above. Esophagogastroduodenoscopy (EGD) will be set up.
== END 2017-06-03 15:15 | disposition home health service (06) | DRG 378 ==
LOC: M ED 12:21 → M ED INP 15:45 → M MSPAV 05-26 13:50
PROVIDERS: ADMIT Internal Medicine; ATTEND Family Medicine
PROC: 30253N1 (ICD-10-PCS; 2017-05-25)
PROC: 0DJ08ZZ Inspection of Upper Intestinal Tract, Via Natural or Artificial Opening Endoscopic (ICD-10-PCS; principal; 2017-05-27 14:29)
PROC: 0JH605Z Insertion of Pacemaker, Single Chamber Rate Responsive into Chest Subcutaneous Tissue and Fascia, Open Approach (ICD-10-PCS; 2017-05-31)
PROC: 02HK3JZ Insertion of Pacemaker Lead into Right Ventricle, Percutaneous Approach (ICD-10-PCS; 2017-05-31)
DX: K92.2 Gastrointestinal hemorrhage, unspecified (principal); D62 Acute posthemorrhagic anemia; I48.2 Chronic atrial fibrillation; D64.9 Anemia, unspecified; E78.5 Hyperlipidemia, unspecified; I11.9 Hypertensive heart disease without heart failure; E11.9 Type 2 diabetes mellitus without complications; I44.30 Unspecified atrioventricular block; K44.9 Diaphragmatic hernia without obstruction or gangrene; Z66 Do not resuscitate; Z79.84 Long term (current) use of oral hypoglycemic drugs; Z79.01 Long term (current) use of anticoagulants; Z86.73 Personal history of transient ischemic attack (TIA), and cerebral infarction without residual deficits; Z85.3 Personal history of malignant neoplasm of breast; Z92.21 Personal history of antineoplastic chemotherapy; Z87.891 Personal history of nicotine dependence

== ENCOUNTER → 2017-07-14 | Outpatient (REF) | payer MEDICARE ==
[~2017-07-14] MED LIST changes: +AMLO5TAB2 PO; +B COTAB3 PO; +CALC1TAB74 PO; +CHOL4POW4 PO; +ELIQ2.5T PO; +LOSA100T8 PO; +PRAD150C PO; +PRAD75CA3 PO
[2017-07-14 17:30] LABS: MEAN CORPUSCULAR HEMOGLOBIN 29.1 pg (27.0-33.0); MEAN CORPUSCULAR HGB CONC 31.6 g/dl (32.0-36.5); MEAN CORPUSCULAR VOLUME 92.1 fl (80.0-96.0); PLATELET COUNT, AUTOMATED 251 10^3/uL (150-450); WHITE BLOOD COUNT 6.3 10^3/uL (4.0-10.0)
== END ==
LOC: M SFHCCLAY 10:04
PROVIDERS: ATTEND Family Medicine
DX: D50.0 Iron deficiency anemia secondary to blood loss (chronic) (principal)

== ENCOUNTER → 2017-12-15 | Outpatient (REF) | payer MEDICARE ==
[2017-12-15 11:55] LABS: HEMATOCRIT 35.2 % (36.0-47.0); HEMOGLOBIN 11.4 g/dl (12.0-15.5); MEAN CORPUSCULAR HEMOGLOBIN 29.8 pg (27.0-33.0); MEAN CORPUSCULAR HGB CONC 32.4 g/dl (32.0-36.5); MEAN CORPUSCULAR VOLUME 91.9 fl (80.0-96.0); PLATELET COUNT, AUTOMATED 216 10^3/uL (150-450); RED BLOOD COUNT 3.83 10^6/uL (4.00-5.40); RED CELL DISTRIBUTION WIDTH 13.6 % (11.5-14.5); WHITE BLOOD COUNT 5.7 10^3/uL (4.0-10.0)
[2017-12-15 12:42] LABS: ALBUMIN 3.7 GM/DL (3.2-5.2); ALBUMIN/GLOBULIN RATIO 1.06 (1.00-1.93); ALKALINE PHOSPHATASE 40 U/L (45-117); ALT/SGPT 17 U/L (12-78); ANION GAP 8 MEQ/L (8-16); AST/SGOT 15 U/L (7-37); BILIRUBIN,TOTAL 0.6 MG/DL (0.2-1.0); BLOOD UREA NITROGEN 16 MG/DL (7-18); CARBON DIOXIDE LEVEL 24 MEQ/L (21-32); CHLORIDE LEVEL 109 MEQ/L (98-107); CHOLESTEROL LEVEL 132 MG/DL (<200); CREATININE FOR GFR 1.03 MG/DL (0.55-1.30); GLOMERULAR FILTRATION RATE 54.6 (>32); GLUCOSE, FASTING 115 MG/DL (70-100); HDL CHOLESTEROL 60 MG/DL (>40); NON-HDL-C 72 MG/DL; POTASSIUM SERUM 4.5 MEQ/L (3.5-5.1); SODIUM LEVEL 141 MEQ/L (136-145); TOTAL PROTEIN 7.2 GM/DL (6.4-8.2); TRIGLYCERIDES LEVEL 165 MG/DL (<150)
[2017-12-15 13:30] LABS: ESTIMATED AVERAGE GLUCOSE 131 MG/DL (60-110); HEMOGLOBIN A1c 6.2 %
[2017-12-15 18:23] LABS: MALB URINE SIEMENS 39.8 MG/L; MAU/CREAT RATIO 13.7 MCG/MG (0.0-30.0)
== END ==
LOC: M SFHCCLAY 09:28
DX: I48.2 Chronic atrial fibrillation (principal); E11.9 Type 2 diabetes mellitus without complications
CPT/HCPCS: 84443

== ENCOUNTER → 2018-06-23 | Outpatient (REF) | payer MEDICARE ==
[2018-06-23 17:15] LABS: ESTIMATED AVERAGE GLUCOSE 123 MG/DL (60-110); HEMOGLOBIN A1c 5.9 %
[2018-06-23 17:17] LABS: ANION GAP 9 MEQ/L (8-16); BLOOD UREA NITROGEN 14 MG/DL (7-18); CALCIUM LEVEL 9.1 MG/DL (8.8-10.2); CARBON DIOXIDE LEVEL 24 MEQ/L (21-32); CHLORIDE LEVEL 106 MEQ/L (98-107); CREATININE FOR GFR 1.06 MG/DL (0.55-1.30); GLOMERULAR FILTRATION RATE 52.8 (>32); GLUCOSE, FASTING 105 MG/DL (70-100); POTASSIUM SERUM 4.4 MEQ/L (3.5-5.1); SODIUM LEVEL 139 MEQ/L (136-145)
== END ==
LOC: M SFHCCLAY 09:40
DX: I48.2 Chronic atrial fibrillation (principal)
CPT/HCPCS: 84443

== ENCOUNTER → 2019-01-13 | Outpatient (REF) | payer MEDICARE ==
[~2019-01-13] MED LIST changes: -/AMLO25TA PO; -/WARF4TA PO; -/WARF5TA PO; -AMLO5TAB2 PO; +AMLO5TAB6 PO; +COUM1TAB14 PO; +COUM1TAB17 PO; -DOCU10ELUD PO; +DOCU5LIQ PO; +HEPA500020 SQ; -HEPA50VL SQ; +METO-1 PO; +NORV2TAB PO; -PRAD150C PO; +PRAD150C6 PO; -PRAD75CA3 PO; +PRAD75CA5 PO; -TOPR25TA PO
[2019-01-13 17:44] LABS: ALBUMIN 3.5 GM/DL (3.2-5.2); BILIRUBIN,TOTAL 0.6 MG/DL (0.2-1.0); CHOLESTEROL RISK RATIO 2.965 (<5); CREATININE FOR GFR 1.06 MG/DL (0.55-1.30); GLOMERULAR FILTRATION RATE 52.7 (>32); POTASSIUM SERUM 4.4 MEQ/L (3.5-5.1); THYROID STIMULATING HORMONE 4.45 uIU/ML (0.358-3.740); THYROXINE (T4) 9.8 UG/DL (4.5-12.0); TOTAL PROTEIN 7.3 GM/DL (6.4-8.2)
[2019-01-13 17:45] LABS: HEMATOCRIT 34.1 % (36.0-47.0); MEAN CORPUSCULAR HEMOGLOBIN 29.8 pg (27.0-33.0); MEAN CORPUSCULAR HGB CONC 32.3 g/dl (32.0-36.5); MEAN CORPUSCULAR VOLUME 92.4 fl (80.0-96.0); PLATELET COUNT, AUTOMATED 225 10^3/uL (150-450); RED BLOOD COUNT 3.69 10^6/uL (4.00-5.40)
== END ==
LOC: M LABDRAWC 16:49
PROVIDERS: ATTEND Physician Assistant
DX: I48.2 Chronic atrial fibrillation (principal)

== ENCOUNTER → 2019-07-21 | Outpatient (REF) | payer MEDICARE ==
[2019-07-21 17:28] LABS: HEMATOCRIT 35.2 % (36.0-47.0); HEMOGLOBIN 11.2 g/dl (12.0-15.5); MEAN CORPUSCULAR HEMOGLOBIN 29.7 pg (27.0-33.0); MEAN CORPUSCULAR HGB CONC 31.8 g/dl (32.0-36.5); MEAN CORPUSCULAR VOLUME 93.4 fl (80.0-96.0); PLATELET COUNT, AUTOMATED 209 10^3/uL (150-450); RED BLOOD COUNT 3.77 10^6/uL (4.00-5.40); WHITE BLOOD COUNT 7.5 10^3/uL (4.0-10.0)
[2019-07-21 17:30] LABS: PERCENT SATURATION 13.7 % (13.2-45.0)
== END ==
LOC: M SFHCCLAY 10:05
PROVIDERS: ATTEND Family Medicine
DX: D64.9 Anemia, unspecified (principal); E11.9 Type 2 diabetes mellitus without complications

== ENCOUNTER → 2020-02-01 | Outpatient (REF) | payer MEDICARE ==
[2020-02-01 16:28] LABS: HEMATOCRIT 34.2 % (36.0-47.0); HEMOGLOBIN 10.8 g/dl (12.0-15.5); MEAN CORPUSCULAR HEMOGLOBIN 29.2 pg (27.0-33.0); MEAN CORPUSCULAR HGB CONC 31.6 g/dl (32.0-36.5); MEAN CORPUSCULAR VOLUME 92.4 fl (80.0-96.0); PLATELET COUNT, AUTOMATED 201 10^3/uL (150-450)
[2020-02-01 16:29] LABS: CALCIUM LEVEL 9.1 MG/DL (8.8-10.2); CREATININE FOR GFR 1.11 MG/DL (0.55-1.30); GLOMERULAR FILTRATION RATE 49.9 (>32); POTASSIUM SERUM 4.4 MEQ/L (3.5-5.1)
[2020-02-01 16:47] LABS: HEMOGLOBIN A1c 6.3 %
== END ==
LOC: M SFHCCLAY 10:51
PROVIDERS: ATTEND Family Medicine
DX: I10 Essential (primary) hypertension (principal); D64.9 Anemia, unspecified; E11.9 Type 2 diabetes mellitus without complications
CPT/HCPCS: 80048; 83036; 83540; 85027; G0463

== ENCOUNTER 2022-12-16 11:08 | Inpatient (IN) | payer MEDICARE ==
[~2022-12-16] VITALS: Ht 157.5 cm; Wt 70.6 kg
[~2022-12-16 11:08] MED LIST changes: +AMLO1TAB24 PO; -AMLO5TAB6 PO; +CHOL4POW26 PO; -CHOL4POW4 PO
[2022-12-16 11:30] VITALS: BP 144/78
[2022-12-16] MEDS ORDERED: BISACODYL 10MG SUPP PR PRN (12:05)
[2022-12-16] MEDS ORDERED: GLUCOSE 4GM CHEW TABLET PO PRN (12:05)
[2022-12-16] MEDS ORDERED: DEXTROSE 50% 50ML SYRINGE IV PRN (12:05)
[2022-12-16] MEDS ORDERED: GLUCAGON INJ 1MG VIAL SC PRN (12:05)
[2022-12-16] MEDS ORDERED: ONDANSETRON 4MG TAB PO PRN (12:05)
[2022-12-16 14:00] VITALS: BP 168/82
[2022-12-16] MEDS: REMEDY PHYTOPLEX Z-GUARD PASTE 113GM TUBE (FROM STOREROOM PRODUCT) TOP SCH ×2 (16:00→21:24)
[2022-12-16] MEDS ORDERED: ALBUTEROL 90 MCG/ACT 8GM HFA INHALER INH ONE (16:05)
[2022-12-16] MEDS ORDERED: CARV12.5 PO (17:24)
[2022-12-16] MEDS ORDERED: INSUHUMDS SC (17:24)
[2022-12-16] MEDS ORDERED: GLIM1TAB4 PO (17:24)
[2022-12-16] MEDS ORDERED: ATOR40TA75 PO (17:24)
[2022-12-16] MEDS ORDERED: ACET1TAB55 PO (17:24)
[2022-12-16] MEDS ORDERED: ELIQ5TAB PO (17:24)
[2022-12-16] MEDS ORDERED: ASPI81CH33 PO (17:24)
[2022-12-16] MEDS ORDERED: INSULANT SC (17:24)
[2022-12-16] MEDS ORDERED: HOME MED LIST COMPLETE! XX SCH (17:25)
[2022-12-16] MEDS: SUCRALFATE 1 GM TAB PO SCH (18:15)
[2022-12-16] MEDS: guaiFENesin 200 MG TAB PO SCH ×2 (18:15→21:23)
[2022-12-16] MEDS: INSULIN LISPRO (NovoLOG) PER UNIT SC SCH ×2 (18:15→21:22)
[2022-12-16] MEDS: NYSTATIN 500,000U/5ML SUSP UDC PO SCH ×2 (18:15→21:23)
[2022-12-16] MEDS: COMBIVENT RESPIMAT 100-20MCG INHALER 4GM INH SCH (19:22)
[2022-12-16] MEDS: BUDESONIDE 0.25 MG/2 ML INHALATION SUSPENSION INH SCH (19:22)
[2022-12-16 20:00] VITALS: BP 146/76
[2022-12-16] MEDS: CHOLESTYRAMINE 4GM PWD PKT PO SCH (21:22)
[2022-12-16] MEDS: APIXABAN 5 MG TAB (ELIQUIS) PO SCH (21:23)
[2022-12-16] MEDS: DOCUSATE SODIUM 100MG CAPSULE PO SCH (21:23)
[2022-12-16] MEDS: ATORVASTATIN 20 MG TAB PO SCH (21:23)
[2022-12-16] MEDS: SENNA 8.6 MG TAB (SENOKOT) PO SCH (21:23)
[2022-12-16] MEDS: PANTOPRAZOLE 40MG TAB (PROTONIX) PO SCH (21:24)
[2022-12-16] MEDS: GLIMEPIRIDE 1 MG TABLET PO SCH (21:24)
[2022-12-16] MEDS: CARVedilol 12.5 MG TAB PO SCH (21:24)
[2022-12-17 06:00] VITALS: BP 160/80
[2022-12-17 06:57] LABS: BASO % 0.3 % (0.0-1.0); EOS # 0.2 10^3/uL (0.0-0.5); EOS % 3.1 % (0.0-3.0); HEMATOCRIT 34.2 % (36.0-47.0); HEMOGLOBIN 11.1 g/dl (12.0-15.5); LYMPH # 1.1 10^3/uL (1.5-5.0); LYMPH % 15.2 % (24.0-44.0); MEAN CORPUSCULAR HEMOGLOBIN 30.7 pg (27.0-33.0); MEAN CORPUSCULAR HGB CONC 32.5 g/dl (32.0-36.5); MEAN CORPUSCULAR VOLUME 94.7 fl (80.0-96.0); MONO # 0.7 10^3/uL (0.0-0.8); MONO % 9.8 % (2.0-8.0); NEUTROPHILS # 5.4 10^3/uL (1.5-8.5); NEUTROPHILS % 71.3 % (36.0-66.0); PLATELET COUNT, AUTOMATED 194 10^3/uL (150-450); RED BLOOD COUNT 3.61 10^6/uL (4.00-5.40); WHITE BLOOD COUNT 7.5 10^3/uL (4.0-10.0)
[2022-12-17 07:10] LABS: BILIRUBIN,TOTAL 1.1 MG/DL (0.3-1.2); CALCIUM LEVEL 8.6 MG/DL (8.3-10.6); CREATININE FOR GFR 1.11 MG/DL (0.55-1.30); GLOMERULAR FILTRATION RATE 49.5 (>32); TOTAL PROTEIN 5.9 G/DL (5.7-8.2)
[2022-12-17] MEDS: INSULIN LISPRO (NovoLOG) PER UNIT SC SCH ×4 (07:30→21:00)
[2022-12-17] MEDS: COMBIVENT RESPIMAT 100-20MCG INHALER 4GM INH SCH ×3 (07:45→19:19)
[2022-12-17] MEDS: BUDESONIDE 0.25 MG/2 ML INHALATION SUSPENSION INH SCH ×2 (07:45→19:21)
[2022-12-17] MEDS: PANTOPRAZOLE 40MG TAB (PROTONIX) PO SCH ×2 (09:09→20:57)
[2022-12-17] MEDS: guaiFENesin 200 MG TAB PO SCH ×3 (09:09→21:00)
[2022-12-17] MEDS: DOCUSATE SODIUM 100MG CAPSULE PO SCH ×2 (09:09→20:57)
[2022-12-17] MEDS: SUCRALFATE 1 GM TAB PO SCH ×3 (09:09→18:00)
[2022-12-17] MEDS: ASPIRIN 81MG ENTERIC TABLET PO SCH (09:09)
[2022-12-17] MEDS: CARVedilol 12.5 MG TAB PO SCH ×2 (09:09→20:56)
[2022-12-17] MEDS: APIXABAN 5 MG TAB (ELIQUIS) PO SCH ×2 (09:09→20:57)
[2022-12-17] MEDS: GLIMEPIRIDE 1 MG TABLET PO SCH (09:09)
[2022-12-17] MEDS: LIDOCAINE 5% (LIDODERM) PATCH TD SCH ×2 (09:10→21:00)
[2022-12-17] MEDS: REMEDY PHYTOPLEX Z-GUARD PASTE 113GM TUBE (FROM STOREROOM PRODUCT) TOP SCH ×3 (09:10→20:57)
[2022-12-17] MEDS: NYSTATIN 500,000U/5ML SUSP UDC PO SCH ×4 (09:11→20:57)
[2022-12-17] MEDS: GLIMEPIRIDE 2 MG TAB PO SCH (18:00)
[2022-12-17] MEDS: SALIVA SUBSTITUTE(MOUTHKOTE) BTL MT SCH ×2 (18:02→20:55)
[2022-12-17 20:15] VITALS: BP 133/85
[2022-12-17] MEDS: ACETAMINOPHEN TAB 650MG DOSE (2X325MG) PO PRN (20:56)
[2022-12-17] MEDS: ATORVASTATIN 20 MG TAB PO SCH (20:57)
[2022-12-17] MEDS: CHOLESTYRAMINE 4GM PWD PKT PO SCH (21:00)
[2022-12-17] MEDS: SENNA 8.6 MG TAB (SENOKOT) PO SCH (21:00)
[2022-12-18 05:01] VITALS: BP 150/90
[2022-12-18 06:36] LABS: BASO % 0.4 % (0.0-1.0); EOS # 0.4 10^3/uL (0.0-0.5); EOS % 5.3 % (0.0-3.0); HEMATOCRIT 33.8 % (36.0-47.0); HEMOGLOBIN 10.7 g/dl (12.0-15.5); LYMPH # 1.2 10^3/uL (1.5-5.0); LYMPH % 16.2 % (24.0-44.0); MEAN CORPUSCULAR HGB CONC 31.7 g/dl (32.0-36.5); MEAN CORPUSCULAR VOLUME 94.7 fl (80.0-96.0); MONO # 0.8 10^3/uL (0.0-0.8); MONO % 10.5 % (2.0-8.0); NEUTROPHILS # 4.8 10^3/uL (1.5-8.5); NEUTROPHILS % 66.9 % (36.0-66.0); PLATELET COUNT, AUTOMATED 196 10^3/uL (150-450); RED BLOOD COUNT 3.57 10^6/uL (4.00-5.40); WHITE BLOOD COUNT 7.2 10^3/uL (4.0-10.0)
[2022-12-18 07:08] LABS: CALCIUM LEVEL 8.3 MG/DL (8.3-10.6); CREATININE FOR GFR 1.24 MG/DL (0.55-1.30); GLOMERULAR FILTRATION RATE 43.6 (>32); POTASSIUM SERUM 4.2 MMOL/L (3.5-5.1)
[2022-12-18] MEDS: BUDESONIDE 0.25 MG/2 ML INHALATION SUSPENSION INH SCH ×2 (07:10→19:27)
[2022-12-18] MEDS: COMBIVENT RESPIMAT 100-20MCG INHALER 4GM INH SCH ×3 (07:10→19:27)
[2022-12-18] MEDS: INSULIN LISPRO (NovoLOG) PER UNIT SC SCH ×4 (07:30→19:55)
[2022-12-18] MEDS: ESCITALOPRAM OXALATE 5MG TABLET (LEXAPRO) PO SCH (08:58)
[2022-12-18] MEDS: APIXABAN 5 MG TAB (ELIQUIS) PO SCH ×2 (08:59→20:38)
[2022-12-18] MEDS: guaiFENesin 200 MG TAB PO SCH ×3 (08:59→20:38)
[2022-12-18] MEDS: SUCRALFATE 1 GM TAB PO SCH ×3 (08:59→17:45)
[2022-12-18] MEDS: NYSTATIN 500,000U/5ML SUSP UDC PO SCH ×4 (08:59→20:38)
[2022-12-18] MEDS: ASPIRIN 81MG ENTERIC TABLET PO SCH (08:59)
[2022-12-18] MEDS: PANTOPRAZOLE 40MG TAB (PROTONIX) PO SCH ×2 (08:59→20:38)
[2022-12-18] MEDS: GLIMEPIRIDE 2 MG TAB PO SCH ×2 (08:59→17:45)
[2022-12-18] MEDS: SALIVA SUBSTITUTE(MOUTHKOTE) BTL MT SCH ×4 (09:00→20:39)
[2022-12-18] MEDS: CARVedilol 12.5 MG TAB PO SCH ×2 (09:00→20:37)
[2022-12-18] MEDS: DOCUSATE SODIUM 100MG CAPSULE PO SCH ×2 (09:00→19:57)
[2022-12-18] MEDS: REMEDY PHYTOPLEX Z-GUARD PASTE 113GM TUBE (FROM STOREROOM PRODUCT) TOP SCH ×3 (09:01→20:39)
[2022-12-18] MEDS: LIDOCAINE 5% (LIDODERM) PATCH TD SCH (09:03)
[2022-12-18] MEDS ORDERED: E-Z-PAQUE 96% w/w SUSP 176GM BTL As Ordered ONE (10:25)
[2022-12-18] MEDS ORDERED: VARIBAR PUDDING 40% w/v 230ML TUBE As Ordered ONE (10:25)
[2022-12-18] MEDS ORDERED: VARIBAR NECTAR 40% w/v 240ML SUSP BTL As Ordered ONE (10:25)
[2022-12-18] MEDS: amLODIPine 5 MG TAB PO SCH ×2 (12:14→20:38)
[2022-12-18 14:00] VITALS: BP 153/76
[2022-12-18] MEDS: SENNA 8.6 MG TAB (SENOKOT) PO SCH (19:57)
[2022-12-18 20:00] VITALS: BP 134/52
[2022-12-18] MEDS: CHOLESTYRAMINE 4GM PWD PKT PO SCH (20:37)
[2022-12-18] MEDS: ACETAMINOPHEN TAB 650MG DOSE (2X325MG) PO PRN (20:38)
[2022-12-18] MEDS: ATORVASTATIN 20 MG TAB PO SCH (20:38)
[2022-12-19 06:00] VITALS: BP 142/80
[2022-12-19] MEDS: COMBIVENT RESPIMAT 100-20MCG INHALER 4GM INH SCH ×3 (07:30→19:59)
[2022-12-19] MEDS: INSULIN LISPRO (NovoLOG) PER UNIT SC SCH ×4 (07:30→21:00)
[2022-12-19] MEDS: LIDOCAINE 5% (LIDODERM) PATCH TD SCH (07:45)
[2022-12-19] MEDS: SUCRALFATE 1 GM TAB PO SCH ×3 (07:46→17:27)
[2022-12-19] MEDS: GLIMEPIRIDE 2 MG TAB PO SCH ×2 (07:46→17:27)
[2022-12-19] MEDS: guaiFENesin 200 MG TAB PO SCH ×3 (07:46→21:00)
[2022-12-19] MEDS: PANTOPRAZOLE 40MG TAB (PROTONIX) PO SCH ×2 (07:46→21:02)
[2022-12-19] MEDS: ESCITALOPRAM OXALATE 5MG TABLET (LEXAPRO) PO SCH (07:46)
[2022-12-19] MEDS: ASPIRIN 81MG ENTERIC TABLET PO SCH (07:46)
[2022-12-19] MEDS: DOCUSATE SODIUM 100MG CAPSULE PO SCH ×2 (07:46→21:04)
[2022-12-19] MEDS: APIXABAN 5 MG TAB (ELIQUIS) PO SCH ×2 (07:47→21:04)
[2022-12-19] MEDS: CARVedilol 12.5 MG TAB PO SCH ×2 (07:47→21:03)
[2022-12-19] MEDS: amLODIPine 5 MG TAB PO SCH ×2 (07:47→21:03)
[2022-12-19] MEDS: SALIVA SUBSTITUTE(MOUTHKOTE) BTL MT SCH ×4 (07:48→21:04)
[2022-12-19] MEDS: REMEDY PHYTOPLEX Z-GUARD PASTE 113GM TUBE (FROM STOREROOM PRODUCT) TOP SCH ×3 (07:49→21:05)
[2022-12-19] MEDS: NYSTATIN 500,000U/5ML SUSP UDC PO SCH ×4 (07:49→21:00)
[2022-12-19] MEDS: BUDESONIDE 0.25 MG/2 ML INHALATION SUSPENSION INH SCH ×2 (08:34→19:59)
[2022-12-19 11:50] LABS: BASO % 0.3 % (0.0-1.0); EOS # 0.3 10^3/uL (0.0-0.5); EOS % 3.6 % (0.0-3.0); HEMATOCRIT 34.4 % (36.0-47.0); HEMOGLOBIN 11.3 g/dl (12.0-15.5); LYMPH % 14.3 % (24.0-44.0); MEAN CORPUSCULAR HEMOGLOBIN 30.6 pg (27.0-33.0); MEAN CORPUSCULAR HGB CONC 32.8 g/dl (32.0-36.5); MEAN CORPUSCULAR VOLUME 93.2 fl (80.0-96.0); MONO # 0.6 10^3/uL (0.0-0.8); MONO % 8.5 % (2.0-8.0); NEUTROPHILS # 5.2 10^3/uL (1.5-8.5); NEUTROPHILS % 72.6 % (36.0-66.0); PLATELET COUNT, AUTOMATED 217 10^3/uL (150-450); RED BLOOD COUNT 3.69 10^6/uL (4.00-5.40); WHITE BLOOD COUNT 7.2 10^3/uL (4.0-10.0)
[2022-12-19 12:21] LABS: CALCIUM LEVEL 8.8 MG/DL (8.3-10.6); CREATININE FOR GFR 1.12 MG/DL (0.55-1.30)
[2022-12-19 14:00] VITALS: BP 128/68
[2022-12-19] MEDS: TIOTROPIUM INHALER/CAPSULE (SPIRIVA) INH SCH (14:30)
[2022-12-19 20:00] VITALS: BP 154/92
[2022-12-19] MEDS: CHOLESTYRAMINE 4GM PWD PKT PO SCH (20:59)
[2022-12-19] MEDS: ACETAMINOPHEN TAB 650MG DOSE (2X325MG) PO PRN (21:00)
[2022-12-19] MEDS: ATORVASTATIN 20 MG TAB PO SCH (21:00)
[2022-12-19] MEDS: SENNA 8.6 MG TAB (SENOKOT) PO SCH (21:04)
[2022-12-20 06:00] VITALS: BP 136/77
[2022-12-20] MEDS: COMBIVENT RESPIMAT 100-20MCG INHALER 4GM INH SCH ×3 (07:13→19:16)
[2022-12-20] MEDS: BUDESONIDE 0.25 MG/2 ML INHALATION SUSPENSION INH SCH ×2 (07:13→19:16)
[2022-12-20] MEDS: TIOTROPIUM INHALER/CAPSULE (SPIRIVA) INH SCH (07:13)
[2022-12-20] MEDS: INSULIN LISPRO (NovoLOG) PER UNIT SC SCH ×4 (07:30→21:00)
[2022-12-20] MEDS: GLIMEPIRIDE 2 MG TAB PO SCH ×2 (08:39→17:56)
[2022-12-20] MEDS: DOCUSATE SODIUM 100MG CAPSULE PO SCH ×2 (08:39→20:48)
[2022-12-20] MEDS: SUCRALFATE 1 GM TAB PO SCH ×3 (08:39→17:56)
[2022-12-20] MEDS: ESCITALOPRAM OXALATE 5MG TABLET (LEXAPRO) PO SCH (08:40)
[2022-12-20] MEDS: APIXABAN 5 MG TAB (ELIQUIS) PO SCH ×2 (08:40→20:49)
[2022-12-20] MEDS: CARVedilol 12.5 MG TAB PO SCH ×2 (08:40→20:48)
[2022-12-20] MEDS: ASPIRIN 81MG ENTERIC TABLET PO SCH (08:40)
[2022-12-20] MEDS: NYSTATIN 500,000U/5ML SUSP UDC PO SCH ×4 (08:40→20:48)
[2022-12-20] MEDS: LIDOCAINE 5% (LIDODERM) PATCH TD SCH (08:41)
[2022-12-20] MEDS: PANTOPRAZOLE 40MG TAB (PROTONIX) PO SCH ×2 (08:41→20:49)
[2022-12-20] MEDS: amLODIPine 5 MG TAB PO SCH ×2 (08:41→20:49)
[2022-12-20] MEDS: guaiFENesin 200 MG TAB PO SCH ×3 (08:41→20:49)
[2022-12-20] MEDS: SALIVA SUBSTITUTE(MOUTHKOTE) BTL MT SCH ×4 (08:42→20:50)
[2022-12-20] MEDS: REMEDY PHYTOPLEX Z-GUARD PASTE 113GM TUBE (FROM STOREROOM PRODUCT) TOP SCH ×3 (08:42→20:50)
[2022-12-20 14:00] VITALS: BP 139/83
[2022-12-20 20:00] VITALS: BP 127/67
[2022-12-20] MEDS: SENNA 8.6 MG TAB (SENOKOT) PO SCH (20:48)
[2022-12-20] MEDS: ATORVASTATIN 20 MG TAB PO SCH (20:48)
[2022-12-20] MEDS: CHOLESTYRAMINE 4GM PWD PKT PO SCH (20:49)
[2022-12-20] MEDS: ACETAMINOPHEN TAB 650MG DOSE (2X325MG) PO PRN (20:49)
[2022-12-21] MEDS: ACETAMINOPHEN TAB 650MG DOSE (2X325MG) PO PRN ×3 (04:25→20:53)
[2022-12-21 06:00] VITALS: BP 137/85
[2022-12-21] MEDS: GLIMEPIRIDE 2 MG TAB PO SCH ×2 (07:26→17:02)
[2022-12-21] MEDS: FUROSEMIDE 20 MG TAB PO SCH (07:27)
[2022-12-21] MEDS: SUCRALFATE 1 GM TAB PO SCH ×3 (07:27→17:02)
[2022-12-21] MEDS: DOCUSATE SODIUM 100MG CAPSULE PO SCH ×2 (07:27→20:54)
[2022-12-21] MEDS: ASPIRIN 81MG ENTERIC TABLET PO SCH (07:27)
[2022-12-21] MEDS: APIXABAN 5 MG TAB (ELIQUIS) PO SCH ×2 (07:27→20:53)
[2022-12-21] MEDS: ESCITALOPRAM OXALATE 5MG TABLET (LEXAPRO) PO SCH (07:28)
[2022-12-21] MEDS: CARVedilol 12.5 MG TAB PO SCH ×2 (07:28→20:54)
[2022-12-21] MEDS: amLODIPine 5 MG TAB PO SCH ×2 (07:28→20:53)
[2022-12-21] MEDS: TIOTROPIUM INHALER/CAPSULE (SPIRIVA) INH SCH (07:30)
[2022-12-21] MEDS: COMBIVENT RESPIMAT 100-20MCG INHALER 4GM INH SCH ×3 (07:30→20:19)
[2022-12-21] MEDS: INSULIN LISPRO (NovoLOG) PER UNIT SC SCH ×4 (07:30→21:00)
[2022-12-21] MEDS: BUDESONIDE 0.25 MG/2 ML INHALATION SUSPENSION INH SCH ×2 (07:30→20:19)
[2022-12-21] MEDS: PANTOPRAZOLE 40MG TAB (PROTONIX) PO SCH ×2 (09:00→20:54)
[2022-12-21] MEDS: guaiFENesin 200 MG TAB PO SCH ×3 (09:00→20:53)
[2022-12-21] MEDS: SALIVA SUBSTITUTE(MOUTHKOTE) BTL MT SCH ×4 (09:00→20:54)
[2022-12-21] MEDS: LIDOCAINE 5% (LIDODERM) PATCH TD SCH (09:00)
[2022-12-21] MEDS: NYSTATIN 500,000U/5ML SUSP UDC PO SCH ×4 (09:00→20:52)
[2022-12-21] MEDS: REMEDY PHYTOPLEX Z-GUARD PASTE 113GM TUBE (FROM STOREROOM PRODUCT) TOP SCH ×3 (12:19→20:55)
[2022-12-21 14:00] VITALS: BP 141/70
[2022-12-21] MEDS ORDERED: BACLOFEN 5MG PER 1/2 TABLET PO ONE (18:30)
[2022-12-21 20:00] VITALS: BP 120/88
[2022-12-21] MEDS: ATORVASTATIN 20 MG TAB PO SCH (20:54)
[2022-12-21] MEDS: CHOLESTYRAMINE 4GM PWD PKT PO SCH (20:54)
[2022-12-21] MEDS: SENNA 8.6 MG TAB (SENOKOT) PO SCH (20:54)
[2022-12-22] MEDS: ACETAMINOPHEN TAB 650MG DOSE (2X325MG) PO PRN (02:49)
[2022-12-22 06:00] VITALS: BP 148/89
[2022-12-22 07:13] LABS: BASO % 0.6 % (0.0-1.0); EOS # 0.3 10^3/uL (0.0-0.5); EOS % 4.7 % (0.0-3.0); HEMATOCRIT 34.4 % (36.0-47.0); HEMOGLOBIN 11.2 g/dl (12.0-15.5); LYMPH # 1.6 10^3/uL (1.5-5.0); LYMPH % 23.7 % (24.0-44.0); MEAN CORPUSCULAR HEMOGLOBIN 30.4 pg (27.0-33.0); MEAN CORPUSCULAR HGB CONC 32.6 g/dl (32.0-36.5); MEAN CORPUSCULAR VOLUME 93.2 fl (80.0-96.0); MONO # 0.8 10^3/uL (0.0-0.8); MONO % 11.7 % (2.0-8.0); NEUTROPHILS # 3.9 10^3/uL (1.5-8.5); NEUTROPHILS % 58.6 % (36.0-66.0); PLATELET COUNT, AUTOMATED 222 10^3/uL (150-450); RED BLOOD COUNT 3.69 10^6/uL (4.00-5.40); WHITE BLOOD COUNT 6.7 10^3/uL (4.0-10.0)
[2022-12-22] MEDS: INSULIN LISPRO (NovoLOG) PER UNIT SC SCH ×4 (07:26→20:38)
[2022-12-22 07:54] LABS: CALCIUM LEVEL 8.7 MG/DL (8.3-10.6); CREATININE FOR GFR 1.27 MG/DL (0.55-1.30); GLOMERULAR FILTRATION RATE 42.4 (>32); POTASSIUM SERUM 3.3 MMOL/L (3.5-5.1)
[2022-12-22] MEDS: BUDESONIDE 0.25 MG/2 ML INHALATION SUSPENSION INH SCH ×2 (08:00→19:57)
[2022-12-22] MEDS: COMBIVENT RESPIMAT 100-20MCG INHALER 4GM INH SCH ×3 (08:00→19:57)
[2022-12-22] MEDS: TIOTROPIUM INHALER/CAPSULE (SPIRIVA) INH SCH (08:00)
[2022-12-22] MEDS: ASPIRIN 81MG ENTERIC TABLET PO SCH (08:22)
[2022-12-22] MEDS: APIXABAN 5 MG TAB (ELIQUIS) PO SCH ×2 (08:22→20:38)
[2022-12-22] MEDS: CARVedilol 12.5 MG TAB PO SCH ×2 (08:22→20:38)
[2022-12-22] MEDS: guaiFENesin 200 MG TAB PO SCH ×3 (08:22→20:38)
[2022-12-22] MEDS: NYSTATIN 500,000U/5ML SUSP UDC PO SCH (08:22)
[2022-12-22] MEDS: FUROSEMIDE 20 MG TAB PO SCH (08:22)
[2022-12-22] MEDS: ESCITALOPRAM OXALATE 5MG TABLET (LEXAPRO) PO SCH (08:22)
[2022-12-22] MEDS: PANTOPRAZOLE 40MG TAB (PROTONIX) PO SCH ×2 (08:22→20:38)
[2022-12-22] MEDS: amLODIPine 5 MG TAB PO SCH (08:23)
[2022-12-22] MEDS: GLIMEPIRIDE 2 MG TAB PO SCH ×2 (08:23→17:06)
[2022-12-22] MEDS: SUCRALFATE 1 GM TAB PO SCH ×3 (08:23→17:06)
[2022-12-22] MEDS: REMEDY PHYTOPLEX Z-GUARD PASTE 113GM TUBE (FROM STOREROOM PRODUCT) TOP SCH ×3 (08:24→20:39)
[2022-12-22] MEDS: SALIVA SUBSTITUTE(MOUTHKOTE) BTL MT SCH ×4 (08:24→20:37)
[2022-12-22] MEDS: DOCUSATE SODIUM 100MG CAPSULE PO SCH (08:24)
[2022-12-22] MEDS: LIDOCAINE 5% (LIDODERM) PATCH TD SCH (08:25)
[2022-12-22] MEDS ORDERED: BACLOFEN 5MG PER 1/2 TABLET PO ONE (10:30)
[2022-12-22] MEDS ORDERED: PILL CUTTER 1 EACH XX PRN (10:45)
[2022-12-22] MEDS: POTASSIUM CHLORIDE 10MEQ SR TABLET PO SCH (11:48)
[2022-12-22] MEDS: NYSTATIN 100,000 UNITS/GM TOPICAL PWD 15GM TOP SCH ×2 (11:48→20:39)
[2022-12-22 14:00] VITALS: BP 130/85
[2022-12-22 20:32] VITALS: BP 133/79
[2022-12-22] MEDS: CHOLESTYRAMINE 4GM PWD PKT PO SCH (20:37)
[2022-12-22] MEDS: ATORVASTATIN 20 MG TAB PO SCH (20:38)
[2022-12-23] MEDS ORDERED: DANTROLENE 25 MG CAP PO SCH ×2 (04:10→09:00)
[2022-12-23 04:51] VITALS: BP 139/87
[2022-12-23] MEDS: INSULIN LISPRO (NovoLOG) PER UNIT SC SCH (07:30)
[2022-12-23 07:46] LABS: CALCIUM LEVEL 8.4 MG/DL (8.3-10.6); CREATININE FOR GFR 1.24 MG/DL (0.55-1.30); GLOMERULAR FILTRATION RATE 43.6 (>32); POTASSIUM SERUM 3.4 MMOL/L (3.5-5.1)
[2022-12-23] MEDS: TIOTROPIUM INHALER/CAPSULE (SPIRIVA) INH SCH (07:49)
[2022-12-23] MEDS: BUDESONIDE 0.25 MG/2 ML INHALATION SUSPENSION INH SCH ×2 (07:49→20:38)
[2022-12-23] MEDS: COMBIVENT RESPIMAT 100-20MCG INHALER 4GM INH SCH ×3 (07:49→20:39)
[2022-12-23] MEDS: PANTOPRAZOLE 40MG TAB (PROTONIX) PO SCH ×2 (08:27→21:01)
[2022-12-23] MEDS: APIXABAN 5 MG TAB (ELIQUIS) PO SCH ×2 (08:27→21:01)
[2022-12-23] MEDS: SUCRALFATE 1 GM TAB PO SCH ×3 (08:27→17:09)
[2022-12-23] MEDS: FUROSEMIDE 20 MG TAB PO SCH (08:28)
[2022-12-23] MEDS: POTASSIUM CHLORIDE 10MEQ SR TABLET PO SCH (08:29)
[2022-12-23] MEDS: ESCITALOPRAM OXALATE 10 MG TAB (LEXAPRO) PO SCH (08:29)
[2022-12-23] MEDS: GLIMEPIRIDE 2 MG TAB PO SCH ×2 (08:29→17:09)
[2022-12-23] MEDS: guaiFENesin 200 MG TAB PO SCH ×3 (08:29→21:00)
[2022-12-23] MEDS: ASPIRIN 81MG ENTERIC TABLET PO SCH (08:29)
[2022-12-23] MEDS: SALIVA SUBSTITUTE(MOUTHKOTE) BTL MT SCH ×4 (08:30→21:02)
[2022-12-23] MEDS: CARVedilol 12.5 MG TAB PO SCH ×2 (08:30→21:00)
[2022-12-23] MEDS: NYSTATIN 100,000 UNITS/GM TOPICAL PWD 15GM TOP SCH ×2 (08:31→21:04)
[2022-12-23] MEDS: REMEDY PHYTOPLEX Z-GUARD PASTE 113GM TUBE (FROM STOREROOM PRODUCT) TOP SCH ×3 (08:31→21:03)
[2022-12-23] MEDS: LIDOCAINE 5% (LIDODERM) PATCH TD SCH (08:31)
[2022-12-23] MEDS ORDERED: POTASSIUM CHLORIDE 10MEQ SR TABLET PO ONE (10:05)
[2022-12-23 14:00] VITALS: BP 138/88
[2022-12-23 20:04] VITALS: BP 176/77
[2022-12-23] MEDS: DANTROLENE 25 MG CAP PO SCH (21:00)
[2022-12-23] MEDS: CHOLESTYRAMINE 4GM PWD PKT PO SCH (21:01)
[2022-12-23] MEDS: ATORVASTATIN 20 MG TAB PO SCH (21:01)
[2022-12-24] MEDS: ACETAMINOPHEN TAB 650MG DOSE (2X325MG) PO PRN ×2 (01:28→07:27)
[2022-12-24] MEDS ORDERED: ACETAMINOPH W/CODEINE #3 TAB UD PO ONE (02:55)
[2022-12-24 06:18] VITALS: BP 163/92
[2022-12-24] MEDS: DANTROLENE 25 MG CAP PO SCH ×2 (06:28→20:52)
[2022-12-24 06:56] VITALS: BP 140/88
[2022-12-24] MEDS: LIDOCAINE 5% (LIDODERM) PATCH TD SCH ×2 (07:22→20:03)
[2022-12-24 07:23] LABS: BASO % 0.5 % (0.0-1.0); EOS # 0.3 10^3/uL (0.0-0.5); EOS % 3.6 % (0.0-3.0); HEMOGLOBIN 11.6 g/dl (12.0-15.5); LYMPH # 1.6 10^3/uL (1.5-5.0); LYMPH % 19.3 % (24.0-44.0); MEAN CORPUSCULAR HEMOGLOBIN 30.4 pg (27.0-33.0); MEAN CORPUSCULAR HGB CONC 32.2 g/dl (32.0-36.5); MEAN CORPUSCULAR VOLUME 94.5 fl (80.0-96.0); MONO # 0.9 10^3/uL (0.0-0.8); MONO % 11.1 % (2.0-8.0); NEUTROPHILS # 5.3 10^3/uL (1.5-8.5); NEUTROPHILS % 64.8 % (36.0-66.0); PLATELET COUNT, AUTOMATED 239 10^3/uL (150-450); RED BLOOD COUNT 3.81 10^6/uL (4.00-5.40); WHITE BLOOD COUNT 8.1 10^3/uL (4.0-10.0)
[2022-12-24] MEDS: ESCITALOPRAM OXALATE 10 MG TAB (LEXAPRO) PO SCH (07:24)
[2022-12-24] MEDS: ASPIRIN 81MG ENTERIC TABLET PO SCH (07:25)
[2022-12-24] MEDS: CARVedilol 12.5 MG TAB PO SCH ×2 (07:25→20:54)
[2022-12-24] MEDS: FUROSEMIDE 20 MG TAB PO SCH (07:25)
[2022-12-24] MEDS: SUCRALFATE 1 GM TAB PO SCH ×3 (07:25→17:20)
[2022-12-24] MEDS: guaiFENesin 200 MG TAB PO SCH ×3 (07:26→20:52)
[2022-12-24] MEDS: APIXABAN 5 MG TAB (ELIQUIS) PO SCH ×2 (07:26→20:54)
[2022-12-24] MEDS: GLIMEPIRIDE 2 MG TAB PO SCH ×2 (07:26→17:19)
[2022-12-24] MEDS: PANTOPRAZOLE 40MG TAB (PROTONIX) PO SCH ×2 (07:27→20:52)
[2022-12-24] MEDS: POTASSIUM CHLORIDE 10MEQ SR TABLET PO SCH (07:27)
[2022-12-24] MEDS: NYSTATIN 100,000 UNITS/GM TOPICAL PWD 15GM TOP SCH ×2 (07:30→20:57)
[2022-12-24] MEDS: REMEDY PHYTOPLEX Z-GUARD PASTE 113GM TUBE (FROM STOREROOM PRODUCT) TOP SCH ×3 (07:33→20:57)
[2022-12-24] MEDS: SALIVA SUBSTITUTE(MOUTHKOTE) BTL MT SCH ×4 (07:33→20:51)
[2022-12-24] MEDS: TIOTROPIUM INHALER/CAPSULE (SPIRIVA) INH SCH (07:35)
[2022-12-24] MEDS: COMBIVENT RESPIMAT 100-20MCG INHALER 4GM INH SCH ×3 (07:35→20:48)
[2022-12-24] MEDS: BUDESONIDE 0.25 MG/2 ML INHALATION SUSPENSION INH SCH ×2 (07:35→20:45)
[2022-12-24 08:16] LABS: CALCIUM LEVEL 8.7 MG/DL (8.3-10.6); CREATININE FOR GFR 1.32 MG/DL (0.55-1.30); GLOMERULAR FILTRATION RATE 40.5 (>32); POTASSIUM SERUM 4.5 MMOL/L (3.5-5.1)
[2022-12-24 14:00] VITALS: BP 138/89
[2022-12-24] MEDS ORDERED: ACETAMINOPHEN TAB 650MG DOSE (2X325MG) PO PRN (15:15)
[2022-12-24 20:00] VITALS: BP 144/90
[2022-12-24] MEDS: CHOLESTYRAMINE 4GM PWD PKT PO SCH (20:00)
[2022-12-24] MEDS: ACETAMINOPHEN 650MG ER TAB (TYLENOL ARTHRITIS) PO SCH (20:54)
[2022-12-24] MEDS: MAGNESIUM OXIDE 400MG TAB (MAG-OX) PO SCH (20:54)
[2022-12-24] MEDS: **hydrALAZINE** 10 MG TAB PO SCH (20:54)
[2022-12-24] MEDS: ATORVASTATIN 20 MG TAB PO SCH (20:55)
[2022-12-25 06:00] VITALS: BP 159/83
[2022-12-25] MEDS: DANTROLENE 25 MG CAP PO SCH ×2 (06:00→21:02)
[2022-12-25] MEDS: TIOTROPIUM INHALER/CAPSULE (SPIRIVA) INH SCH (08:00)
[2022-12-25] MEDS: COMBIVENT RESPIMAT 100-20MCG INHALER 4GM INH SCH ×3 (08:00→21:10)
[2022-12-25] MEDS: BUDESONIDE 0.25 MG/2 ML INHALATION SUSPENSION INH SCH ×2 (08:00→21:10)
[2022-12-25] MEDS: NYSTATIN 100,000 UNITS/GM TOPICAL PWD 15GM TOP SCH ×2 (08:04→21:03)
[2022-12-25] MEDS: CARVedilol 12.5 MG TAB PO SCH ×2 (08:05→21:02)
[2022-12-25] MEDS: REMEDY PHYTOPLEX Z-GUARD PASTE 113GM TUBE (FROM STOREROOM PRODUCT) TOP SCH ×3 (08:05→21:05)
[2022-12-25] MEDS: SALIVA SUBSTITUTE(MOUTHKOTE) BTL MT SCH ×4 (08:05→21:04)
[2022-12-25] MEDS: SUCRALFATE 1 GM TAB PO SCH ×3 (08:06→16:46)
[2022-12-25] MEDS: GLIMEPIRIDE 2 MG TAB PO SCH ×2 (08:06→16:46)
[2022-12-25] MEDS: **hydrALAZINE** 10 MG TAB PO SCH (08:07)
[2022-12-25] MEDS: PANTOPRAZOLE 40MG TAB (PROTONIX) PO SCH ×2 (08:07→21:02)
[2022-12-25] MEDS: ASPIRIN 81MG ENTERIC TABLET PO SCH (08:07)
[2022-12-25] MEDS: APIXABAN 5 MG TAB (ELIQUIS) PO SCH ×2 (08:07→21:02)
[2022-12-25] MEDS: guaiFENesin 200 MG TAB PO SCH ×3 (08:07→21:03)
[2022-12-25] MEDS: ESCITALOPRAM OXALATE 10 MG TAB (LEXAPRO) PO SCH (08:07)
[2022-12-25 14:00] VITALS: BP 144/74
[2022-12-25] MEDS: **hydrALAZINE HCL** 25 MG TAB PO SCH ×2 (16:46→21:02)
[2022-12-25 20:00] VITALS: BP 133/80
[2022-12-25] MEDS: CHOLESTYRAMINE 4GM PWD PKT PO SCH (21:01)
[2022-12-25] MEDS: ACETAMINOPHEN 650MG ER TAB (TYLENOL ARTHRITIS) PO SCH (21:01)
[2022-12-25] MEDS: MAGNESIUM OXIDE 400MG TAB (MAG-OX) PO SCH (21:02)
[2022-12-25] MEDS: ATORVASTATIN 20 MG TAB PO SCH (21:03)
[2022-12-26 06:00] VITALS: BP 148/60
[2022-12-26] MEDS: COMBIVENT RESPIMAT 100-20MCG INHALER 4GM INH SCH ×3 (06:25→20:03)
[2022-12-26] MEDS: TIOTROPIUM INHALER/CAPSULE (SPIRIVA) INH SCH (06:25)
[2022-12-26] MEDS: BUDESONIDE 0.25 MG/2 ML INHALATION SUSPENSION INH SCH ×2 (06:25→20:05)
[2022-12-26] MEDS: DANTROLENE 25 MG CAP PO SCH ×2 (06:33→20:29)
[2022-12-26 08:11] LABS: BASO % 0.6 % (0.0-1.0); EOS # 0.3 10^3/uL (0.0-0.5); EOS % 4.2 % (0.0-3.0); HEMATOCRIT 35.7 % (36.0-47.0); HEMOGLOBIN 11.6 g/dl (12.0-15.5); LYMPH # 1.4 10^3/uL (1.5-5.0); LYMPH % 19.1 % (24.0-44.0); MEAN CORPUSCULAR HEMOGLOBIN 30.5 pg (27.0-33.0); MEAN CORPUSCULAR HGB CONC 32.5 g/dl (32.0-36.5); MEAN CORPUSCULAR VOLUME 93.9 fl (80.0-96.0); MONO # 0.7 10^3/uL (0.0-0.8); MONO % 9.6 % (2.0-8.0); NEUTROPHILS # 4.8 10^3/uL (1.5-8.5); NEUTROPHILS % 65.9 % (36.0-66.0); PLATELET COUNT, AUTOMATED 228 10^3/uL (150-450); WHITE BLOOD COUNT 7.2 10^3/uL (4.0-10.0)
[2022-12-26 08:43] LABS: CALCIUM LEVEL 8.4 MG/DL (8.3-10.6); CREATININE FOR GFR 1.23 MG/DL (0.55-1.30)
[2022-12-26] MEDS: guaiFENesin 200 MG TAB PO SCH ×3 (09:48→20:32)
[2022-12-26] MEDS: ESCITALOPRAM OXALATE 10 MG TAB (LEXAPRO) PO SCH (09:48)
[2022-12-26] MEDS: ASPIRIN 81MG ENTERIC TABLET PO SCH (09:48)
[2022-12-26] MEDS: PANTOPRAZOLE 40MG TAB (PROTONIX) PO SCH ×2 (09:48→20:32)
[2022-12-26] MEDS: SUCRALFATE 1 GM TAB PO SCH ×3 (09:48→17:49)
[2022-12-26] MEDS: **hydrALAZINE HCL** 25 MG TAB PO SCH ×3 (09:49→20:24)
[2022-12-26] MEDS: CARVedilol 12.5 MG TAB PO SCH ×2 (09:49→20:24)
[2022-12-26] MEDS: GLIMEPIRIDE 2 MG TAB PO SCH ×2 (09:49→17:52)
[2022-12-26] MEDS: APIXABAN 5 MG TAB (ELIQUIS) PO SCH ×2 (09:49→20:24)
[2022-12-26] MEDS: REMEDY PHYTOPLEX Z-GUARD PASTE 113GM TUBE (FROM STOREROOM PRODUCT) TOP SCH ×3 (09:50→20:26)
[2022-12-26] MEDS: NYSTATIN 100,000 UNITS/GM TOPICAL PWD 15GM TOP SCH ×2 (09:50→20:25)
[2022-12-26] MEDS: SALIVA SUBSTITUTE(MOUTHKOTE) BTL MT SCH ×4 (09:51→20:26)
[2022-12-26] MEDS: LIDOCAINE 5% (LIDODERM) PATCH TD SCH (09:52)
[2022-12-26 14:00] VITALS: BP 113/72
[2022-12-26 19:39] VITALS: BP 146/77
[2022-12-26] MEDS: ATORVASTATIN 20 MG TAB PO SCH (20:23)
[2022-12-26] MEDS: ACETAMINOPHEN 650MG ER TAB (TYLENOL ARTHRITIS) PO SCH (20:23)
[2022-12-26] MEDS: MAGNESIUM OXIDE 400MG TAB (MAG-OX) PO SCH (20:24)
[2022-12-26] MEDS: CHOLESTYRAMINE 4GM PWD PKT PO SCH (20:25)
[2022-12-26] MEDS: RAMELTEON 8 MG TAB (ROZEREM) PO PRN (22:25)
[2022-12-27 05:26] VITALS: BP 140/80
[2022-12-27] MEDS: DANTROLENE 25 MG CAP PO SCH ×2 (06:24→20:48)
[2022-12-27] MEDS: COMBIVENT RESPIMAT 100-20MCG INHALER 4GM INH SCH ×3 (07:56→20:35)
[2022-12-27] MEDS: TIOTROPIUM INHALER/CAPSULE (SPIRIVA) INH SCH (07:56)
[2022-12-27] MEDS: BUDESONIDE 0.25 MG/2 ML INHALATION SUSPENSION INH SCH ×2 (07:56→20:35)
[2022-12-27] MEDS: APIXABAN 5 MG TAB (ELIQUIS) PO SCH ×2 (09:22→20:47)
[2022-12-27] MEDS: guaiFENesin 200 MG TAB PO SCH ×4 (09:22→20:46)
[2022-12-27] MEDS: ASPIRIN 81MG ENTERIC TABLET PO SCH (09:22)
[2022-12-27] MEDS: PANTOPRAZOLE 40MG TAB (PROTONIX) PO SCH ×2 (09:22→20:47)
[2022-12-27] MEDS: CARVedilol 12.5 MG TAB PO SCH ×2 (09:22→20:47)
[2022-12-27] MEDS: ESCITALOPRAM OXALATE 10 MG TAB (LEXAPRO) PO SCH (09:22)
[2022-12-27] MEDS: **hydrALAZINE HCL** 25 MG TAB PO SCH ×3 (09:22→20:47)
[2022-12-27] MEDS: LIDOCAINE 5% (LIDODERM) PATCH TD SCH (09:23)
[2022-12-27] MEDS: REMEDY PHYTOPLEX Z-GUARD PASTE 113GM TUBE (FROM STOREROOM PRODUCT) TOP SCH ×3 (09:23→20:49)
[2022-12-27] MEDS: NYSTATIN 100,000 UNITS/GM TOPICAL PWD 15GM TOP SCH ×2 (09:23→20:49)
[2022-12-27] MEDS: GLIMEPIRIDE 2 MG TAB PO SCH ×2 (09:25→16:55)
[2022-12-27] MEDS: SUCRALFATE 1 GM TAB PO SCH ×3 (09:26→16:55)
[2022-12-27] MEDS: SALIVA SUBSTITUTE(MOUTHKOTE) BTL MT SCH ×4 (09:26→20:50)
[2022-12-27 14:00] VITALS: BP 124/63
[2022-12-27 20:00] VITALS: BP 125/68
[2022-12-27] MEDS: RAMELTEON 8 MG TAB (ROZEREM) PO PRN (20:45)
[2022-12-27] MEDS: CHOLESTYRAMINE 4GM PWD PKT PO SCH (20:45)
[2022-12-27] MEDS: ACETAMINOPHEN 650MG ER TAB (TYLENOL ARTHRITIS) PO SCH (20:46)
[2022-12-27] MEDS: MAGNESIUM OXIDE 400MG TAB (MAG-OX) PO SCH (20:47)
[2022-12-27] MEDS: ATORVASTATIN 20 MG TAB PO SCH (20:48)
[2022-12-27] MEDS ORDERED: diphenhydrAMINE 25MG CAP PO ONE (23:45)
[2022-12-28] MEDS ORDERED: carisoprodoL 350 MG TAB PO ONE (00:20)
[2022-12-28 06:00] VITALS: BP 139/71
[2022-12-28] MEDS: DANTROLENE 25 MG CAP PO SCH ×2 (06:48→22:04)
[2022-12-28] MEDS: TIOTROPIUM INHALER/CAPSULE (SPIRIVA) INH SCH (07:08)
[2022-12-28] MEDS: BUDESONIDE 0.25 MG/2 ML INHALATION SUSPENSION INH SCH ×2 (07:08→19:18)
[2022-12-28] MEDS: COMBIVENT RESPIMAT 100-20MCG INHALER 4GM INH SCH ×3 (07:09→19:18)
[2022-12-28 07:10] LABS: BASO % 0.4 % (0.0-1.0); EOS # 0.3 10^3/uL (0.0-0.5); EOS % 4.6 % (0.0-3.0); HEMATOCRIT 33.5 % (36.0-47.0); HEMOGLOBIN 10.8 g/dl (12.0-15.5); LYMPH # 1.4 10^3/uL (1.5-5.0); LYMPH % 21.1 % (24.0-44.0); MEAN CORPUSCULAR HEMOGLOBIN 30.4 pg (27.0-33.0); MEAN CORPUSCULAR HGB CONC 32.2 g/dl (32.0-36.5); MEAN CORPUSCULAR VOLUME 94.4 fl (80.0-96.0); MONO # 0.7 10^3/uL (0.0-0.8); NEUTROPHILS # 4.3 10^3/uL (1.5-8.5); NEUTROPHILS % 63.6 % (36.0-66.0); PLATELET COUNT, AUTOMATED 221 10^3/uL (150-450); RED BLOOD COUNT 3.55 10^6/uL (4.00-5.40); WHITE BLOOD COUNT 6.7 10^3/uL (4.0-10.0)
[2022-12-28 07:20] LABS: ALBUMIN 3.4 G/DL (3.2-5.2); BILIRUBIN,TOTAL 0.8 MG/DL (0.3-1.2); CALCIUM LEVEL 8.9 MG/DL (8.3-10.6); CREATININE FOR GFR 1.18 MG/DL (0.55-1.30); GLOMERULAR FILTRATION RATE 46.1 (>32); POTASSIUM SERUM 3.6 MMOL/L (3.5-5.1); TOTAL PROTEIN 6.1 G/DL (5.7-8.2)
[2022-12-28] MEDS: PANTOPRAZOLE 40MG TAB (PROTONIX) PO SCH ×2 (08:43→22:04)
[2022-12-28] MEDS: GLIMEPIRIDE 2 MG TAB PO SCH ×2 (08:43→16:28)
[2022-12-28] MEDS: ESCITALOPRAM OXALATE 10 MG TAB (LEXAPRO) PO SCH (08:43)
[2022-12-28] MEDS: guaiFENesin 200 MG TAB PO SCH ×3 (08:43→22:03)
[2022-12-28] MEDS: ASPIRIN 81MG ENTERIC TABLET PO SCH (08:43)
[2022-12-28] MEDS: CARVedilol 12.5 MG TAB PO SCH ×2 (08:44→22:12)
[2022-12-28] MEDS: **hydrALAZINE HCL** 25 MG TAB PO SCH ×3 (08:45→22:12)
[2022-12-28] MEDS: SUCRALFATE 1 GM TAB PO SCH ×3 (08:49→16:26)
[2022-12-28] MEDS: LIDOCAINE 5% (LIDODERM) PATCH TD SCH (08:50)
[2022-12-28] MEDS: SALIVA SUBSTITUTE(MOUTHKOTE) BTL MT SCH ×4 (08:50→22:08)
[2022-12-28] MEDS: APIXABAN 5 MG TAB (ELIQUIS) PO SCH ×2 (08:51→22:03)
[2022-12-28] MEDS: REMEDY PHYTOPLEX Z-GUARD PASTE 113GM TUBE (FROM STOREROOM PRODUCT) TOP SCH ×3 (08:51→22:13)
[2022-12-28] MEDS: NYSTATIN 100,000 UNITS/GM TOPICAL PWD 15GM TOP SCH ×2 (08:51→22:11)
[2022-12-28 13:52] VITALS: BP 117/59
[2022-12-28 20:00] VITALS: BP 105/58
[2022-12-28] MEDS: CHOLESTYRAMINE 4GM PWD PKT PO SCH (20:47)
[2022-12-28] MEDS: ATORVASTATIN 20 MG TAB PO SCH (22:04)
[2022-12-28] MEDS: MAGNESIUM OXIDE 400MG TAB (MAG-OX) PO SCH (22:04)
[2022-12-28] MEDS: ACETAMINOPHEN 650MG ER TAB (TYLENOL ARTHRITIS) PO SCH (22:05)
[2022-12-29] MEDS: RAMELTEON 8 MG TAB (ROZEREM) PO PRN (00:39)
[2022-12-29 06:00] VITALS: BP 139/67
[2022-12-29] MEDS: DANTROLENE 25 MG CAP PO SCH ×2 (06:59→21:33)
[2022-12-29 07:14] LABS: BASO % 0.7 % (0.0-1.0); EOS # 0.3 10^3/uL (0.0-0.5); EOS % 4.9 % (0.0-3.0); HEMATOCRIT 33.4 % (36.0-47.0); HEMOGLOBIN 10.7 g/dl (12.0-15.5); LYMPH # 1.2 10^3/uL (1.5-5.0); LYMPH % 20.3 % (24.0-44.0); MEAN CORPUSCULAR HEMOGLOBIN 30.5 pg (27.0-33.0); MEAN CORPUSCULAR VOLUME 95.2 fl (80.0-96.0); MONO # 0.6 10^3/uL (0.0-0.8); MONO % 10.5 % (2.0-8.0); NEUTROPHILS # 3.9 10^3/uL (1.5-8.5); NEUTROPHILS % 63.1 % (36.0-66.0); PLATELET COUNT, AUTOMATED 213 10^3/uL (150-450); RED BLOOD COUNT 3.51 10^6/uL (4.00-5.40); WHITE BLOOD COUNT 6.1 10^3/uL (4.0-10.0)
[2022-12-29] MEDS: BUDESONIDE 0.25 MG/2 ML INHALATION SUSPENSION INH SCH ×2 (07:34→20:29)
[2022-12-29] MEDS: TIOTROPIUM INHALER/CAPSULE (SPIRIVA) INH SCH (07:34)
[2022-12-29] MEDS: COMBIVENT RESPIMAT 100-20MCG INHALER 4GM INH SCH ×3 (07:34→20:29)
[2022-12-29 07:50] LABS: ALBUMIN 3.1 G/DL (3.2-5.2); BILIRUBIN,TOTAL 0.7 MG/DL (0.3-1.2); CALCIUM LEVEL 8.8 MG/DL (8.3-10.6); CREATININE FOR GFR 1.17 MG/DL (0.55-1.30); GLOMERULAR FILTRATION RATE 46.6 (>32); POTASSIUM SERUM 3.6 MMOL/L (3.5-5.1)
[2022-12-29] MEDS: LIDOCAINE 5% (LIDODERM) PATCH TD SCH ×2 (08:13→21:37)
[2022-12-29] MEDS: **hydrALAZINE HCL** 25 MG TAB PO SCH ×3 (08:13→21:34)
[2022-12-29] MEDS: SUCRALFATE 1 GM TAB PO SCH ×3 (08:13→17:01)
[2022-12-29] MEDS: ESCITALOPRAM OXALATE 10 MG TAB (LEXAPRO) PO SCH (08:14)
[2022-12-29] MEDS: GLIMEPIRIDE 2 MG TAB PO SCH ×2 (08:14→17:01)
[2022-12-29] MEDS: CARVedilol 12.5 MG TAB PO SCH ×2 (08:14→21:32)
[2022-12-29] MEDS: PANTOPRAZOLE 40MG TAB (PROTONIX) PO SCH ×2 (08:14→21:34)
[2022-12-29] MEDS: guaiFENesin 200 MG TAB PO SCH ×3 (08:14→21:32)
[2022-12-29] MEDS: APIXABAN 5 MG TAB (ELIQUIS) PO SCH ×2 (08:14→21:34)
[2022-12-29] MEDS: ASPIRIN 81MG ENTERIC TABLET PO SCH (08:14)
[2022-12-29] MEDS: NYSTATIN 100,000 UNITS/GM TOPICAL PWD 15GM TOP SCH ×2 (08:15→21:36)
[2022-12-29] MEDS: REMEDY PHYTOPLEX Z-GUARD PASTE 113GM TUBE (FROM STOREROOM PRODUCT) TOP SCH ×3 (08:16→21:36)
[2022-12-29] MEDS: SALIVA SUBSTITUTE(MOUTHKOTE) BTL MT SCH ×4 (08:16→21:35)
[2022-12-29 14:00] VITALS: BP 134/73
[2022-12-29 20:00] VITALS: BP 133/71
[2022-12-29] MEDS: ACETAMINOPHEN 650MG ER TAB (TYLENOL ARTHRITIS) PO SCH (21:33)
[2022-12-29] MEDS: MAGNESIUM OXIDE 400MG TAB (MAG-OX) PO SCH (21:33)
[2022-12-29] MEDS: ATORVASTATIN 20 MG TAB PO SCH (21:33)
[2022-12-29] MEDS: CHOLESTYRAMINE 4GM PWD PKT PO SCH (21:35)
[2022-12-30 06:00] VITALS: BP 153/85
[2022-12-30] MEDS: DANTROLENE 25 MG CAP PO SCH ×2 (06:08→21:10)
[2022-12-30] MEDS: TIOTROPIUM INHALER/CAPSULE (SPIRIVA) INH SCH (07:41)
[2022-12-30] MEDS: BUDESONIDE 0.25 MG/2 ML INHALATION SUSPENSION INH SCH ×2 (07:41→20:09)
[2022-12-30] MEDS: COMBIVENT RESPIMAT 100-20MCG INHALER 4GM INH SCH ×3 (07:41→20:09)
[2022-12-30] MEDS: SALIVA SUBSTITUTE(MOUTHKOTE) BTL MT SCH ×4 (09:12→21:13)
[2022-12-30] MEDS: NYSTATIN 100,000 UNITS/GM TOPICAL PWD 15GM TOP SCH ×2 (09:13→21:14)
[2022-12-30] MEDS: REMEDY PHYTOPLEX Z-GUARD PASTE 113GM TUBE (FROM STOREROOM PRODUCT) TOP SCH ×3 (09:13→21:14)
[2022-12-30] MEDS: GLIMEPIRIDE 2 MG TAB PO SCH ×2 (09:14→17:22)
[2022-12-30] MEDS: SUCRALFATE 1 GM TAB PO SCH ×3 (09:15→17:22)
[2022-12-30] MEDS: CARVedilol 12.5 MG TAB PO SCH ×2 (09:16→21:10)
[2022-12-30] MEDS: ASPIRIN 81MG ENTERIC TABLET PO SCH (09:16)
[2022-12-30] MEDS: **hydrALAZINE HCL** 25 MG TAB PO SCH ×3 (09:16→21:11)
[2022-12-30] MEDS: APIXABAN 5 MG TAB (ELIQUIS) PO SCH ×2 (09:17→21:12)
[2022-12-30] MEDS: ESCITALOPRAM OXALATE 10 MG TAB (LEXAPRO) PO SCH (09:17)
[2022-12-30] MEDS: guaiFENesin 200 MG TAB PO SCH ×3 (09:17→21:13)
[2022-12-30] MEDS: PANTOPRAZOLE 40MG TAB (PROTONIX) PO SCH ×2 (09:17→21:12)
[2022-12-30 14:00] VITALS: BP 124/58
[2022-12-30 20:00] VITALS: BP 120/63
[2022-12-30] MEDS: MAGNESIUM OXIDE 400MG TAB (MAG-OX) PO SCH (21:10)
[2022-12-30] MEDS: ACETAMINOPHEN 650MG ER TAB (TYLENOL ARTHRITIS) PO SCH (21:11)
[2022-12-30] MEDS: RAMELTEON 8 MG TAB (ROZEREM) PO PRN (21:12)
[2022-12-30] MEDS: CHOLESTYRAMINE 4GM PWD PKT PO SCH (21:13)
[2022-12-30] MEDS: ATORVASTATIN 20 MG TAB PO SCH (21:16)
[2022-12-31 06:00] VITALS: BP 145/77
[2022-12-31] MEDS: DANTROLENE 25 MG CAP PO SCH ×2 (06:37→20:52)
[2022-12-31] MEDS: COMBIVENT RESPIMAT 100-20MCG INHALER 4GM INH SCH ×3 (07:06→19:26)
[2022-12-31] MEDS: TIOTROPIUM INHALER/CAPSULE (SPIRIVA) INH SCH (07:06)
[2022-12-31] MEDS: BUDESONIDE 0.25 MG/2 ML INHALATION SUSPENSION INH SCH ×2 (07:06→19:26)
[2022-12-31] MEDS: ESCITALOPRAM OXALATE 10 MG TAB (LEXAPRO) PO SCH (09:05)
[2022-12-31] MEDS: **hydrALAZINE HCL** 25 MG TAB PO SCH ×3 (09:05→20:52)
[2022-12-31] MEDS: ASPIRIN 81MG ENTERIC TABLET PO SCH (09:05)
[2022-12-31] MEDS: LIDOCAINE 5% (LIDODERM) PATCH TD SCH (09:05)
[2022-12-31] MEDS: SUCRALFATE 1 GM TAB PO SCH ×3 (09:06→16:37)
[2022-12-31] MEDS: APIXABAN 5 MG TAB (ELIQUIS) PO SCH ×2 (09:06→20:52)
[2022-12-31] MEDS: PANTOPRAZOLE 40MG TAB (PROTONIX) PO SCH ×2 (09:06→20:52)
[2022-12-31] MEDS: CARVedilol 12.5 MG TAB PO SCH ×2 (09:06→20:52)
[2022-12-31] MEDS: guaiFENesin 200 MG TAB PO SCH ×3 (09:06→20:51)
[2022-12-31] MEDS: REMEDY PHYTOPLEX Z-GUARD PASTE 113GM TUBE (FROM STOREROOM PRODUCT) TOP SCH ×3 (09:07→21:58)
[2022-12-31] MEDS: SALIVA SUBSTITUTE(MOUTHKOTE) BTL MT SCH ×4 (09:07→20:55)
[2022-12-31] MEDS: NYSTATIN 100,000 UNITS/GM TOPICAL PWD 15GM TOP SCH ×2 (09:07→20:55)
[2022-12-31] MEDS: GLIMEPIRIDE 2 MG TAB PO SCH (09:11)
[2022-12-31 10:59] LABS: BASO % 0.4 % (0.0-1.0); EOS # 0.3 10^3/uL (0.0-0.5); EOS % 3.7 % (0.0-3.0); HEMATOCRIT 35.1 % (36.0-47.0); HEMOGLOBIN 11.2 g/dl (12.0-15.5); LYMPH # 1.1 10^3/uL (1.5-5.0); LYMPH % 16.6 % (24.0-44.0); MEAN CORPUSCULAR HEMOGLOBIN 30.4 pg (27.0-33.0); MEAN CORPUSCULAR HGB CONC 31.9 g/dl (32.0-36.5); MEAN CORPUSCULAR VOLUME 95.4 fl (80.0-96.0); MONO # 0.5 10^3/uL (0.0-0.8); MONO % 7.8 % (2.0-8.0); NEUTROPHILS # 4.8 10^3/uL (1.5-8.5); NEUTROPHILS % 70.9 % (36.0-66.0); PLATELET COUNT, AUTOMATED 247 10^3/uL (150-450); RED BLOOD COUNT 3.68 10^6/uL (4.00-5.40); WHITE BLOOD COUNT 6.8 10^3/uL (4.0-10.0)
[2022-12-31 11:34] LABS: CALCIUM LEVEL 8.9 MG/DL (8.3-10.6); CREATININE FOR GFR 1.24 MG/DL (0.55-1.30); GLOMERULAR FILTRATION RATE 43.6 (>32); POTASSIUM SERUM 4.2 MMOL/L (3.5-5.1)
[2022-12-31 14:12] VITALS: BP 179/82
[2022-12-31 15:03] VITALS: BP 146/82
[2022-12-31] MEDS: GLIMEPIRIDE 1 MG TABLET PO SCH (16:38)
[2022-12-31 20:10] VITALS: BP 152/84
[2022-12-31] MEDS: ATORVASTATIN 20 MG TAB PO SCH (20:52)
[2022-12-31] MEDS: MAGNESIUM OXIDE 400MG TAB (MAG-OX) PO SCH (20:52)
[2022-12-31] MEDS: CHOLESTYRAMINE 4GM PWD PKT PO SCH (20:53)
[2022-12-31] MEDS: ACETAMINOPHEN 650MG ER TAB (TYLENOL ARTHRITIS) PO SCH (20:53)
[2023-01-01 06:01] VITALS: BP 158/64
[2023-01-01] MEDS: DANTROLENE 25 MG CAP PO SCH ×2 (06:43→20:24)
[2023-01-01] MEDS: TIOTROPIUM INHALER/CAPSULE (SPIRIVA) INH SCH (07:33)
[2023-01-01] MEDS: COMBIVENT RESPIMAT 100-20MCG INHALER 4GM INH SCH ×3 (07:33→20:46)
[2023-01-01] MEDS: BUDESONIDE 0.25 MG/2 ML INHALATION SUSPENSION INH SCH ×2 (07:33→20:46)
[2023-01-01] MEDS: GLIMEPIRIDE 1 MG TABLET PO SCH (09:43)
[2023-01-01] MEDS: LIDOCAINE 5% (LIDODERM) PATCH TD SCH (09:43)
[2023-01-01] MEDS: APIXABAN 5 MG TAB (ELIQUIS) PO SCH ×2 (09:44→20:23)
[2023-01-01] MEDS: ESCITALOPRAM OXALATE 10 MG TAB (LEXAPRO) PO SCH (09:44)
[2023-01-01] MEDS: ASPIRIN 81MG ENTERIC TABLET PO SCH (09:44)
[2023-01-01] MEDS: CARVedilol 12.5 MG TAB PO SCH ×2 (09:47→20:24)
[2023-01-01] MEDS: SUCRALFATE 1 GM TAB PO SCH ×3 (09:48→17:54)
[2023-01-01] MEDS: guaiFENesin 200 MG TAB PO SCH ×3 (09:48→20:23)
[2023-01-01] MEDS: **hydrALAZINE HCL** 25 MG TAB PO SCH ×3 (09:48→20:22)
[2023-01-01] MEDS: PANTOPRAZOLE 40MG TAB (PROTONIX) PO SCH ×2 (09:48→20:24)
[2023-01-01] MEDS: NYSTATIN 100,000 UNITS/GM TOPICAL PWD 15GM TOP SCH ×2 (09:50→20:25)
[2023-01-01] MEDS: REMEDY PHYTOPLEX Z-GUARD PASTE 113GM TUBE (FROM STOREROOM PRODUCT) TOP SCH ×3 (12:20→20:27)
[2023-01-01] MEDS: SALIVA SUBSTITUTE(MOUTHKOTE) BTL MT SCH ×4 (12:20→20:25)
[2023-01-01 14:00] VITALS: BP 98/64
[2023-01-01 20:00] VITALS: BP 140/65
[2023-01-01] MEDS: RAMELTEON 8 MG TAB (ROZEREM) PO PRN (20:21)
[2023-01-01] MEDS: ACETAMINOPHEN 650MG ER TAB (TYLENOL ARTHRITIS) PO SCH (20:21)
[2023-01-01] MEDS: ATORVASTATIN 20 MG TAB PO SCH (20:23)
[2023-01-01] MEDS: MAGNESIUM OXIDE 400MG TAB (MAG-OX) PO SCH (20:23)
[2023-01-01] MEDS: CHOLESTYRAMINE 4GM PWD PKT PO SCH (20:24)
[2023-01-02] MEDS: DANTROLENE 25 MG CAP PO SCH ×2 (06:12→20:36)
[2023-01-02 06:27] VITALS: BP 157/94
[2023-01-02] MEDS: LIDOCAINE 5% (LIDODERM) PATCH TD SCH (09:00)
[2023-01-02] MEDS: BUDESONIDE 0.25 MG/2 ML INHALATION SUSPENSION INH SCH ×2 (09:06→20:03)
[2023-01-02] MEDS: TIOTROPIUM INHALER/CAPSULE (SPIRIVA) INH SCH (09:06)
[2023-01-02] MEDS: COMBIVENT RESPIMAT 100-20MCG INHALER 4GM INH SCH ×3 (09:06→20:03)
[2023-01-02] MEDS: ASPIRIN 81MG ENTERIC TABLET PO SCH (09:08)
[2023-01-02] MEDS: APIXABAN 5 MG TAB (ELIQUIS) PO SCH ×2 (09:08→20:35)
[2023-01-02] MEDS: ESCITALOPRAM OXALATE 10 MG TAB (LEXAPRO) PO SCH (09:08)
[2023-01-02] MEDS: guaiFENesin 200 MG TAB PO SCH ×3 (09:08→20:35)
[2023-01-02] MEDS: PANTOPRAZOLE 40MG TAB (PROTONIX) PO SCH ×2 (09:09→20:37)
[2023-01-02] MEDS: SALIVA SUBSTITUTE(MOUTHKOTE) BTL MT SCH ×4 (09:09→20:35)
[2023-01-02] MEDS: SUCRALFATE 1 GM TAB PO SCH ×3 (09:09→17:21)
[2023-01-02] MEDS: GLIMEPIRIDE 1 MG TABLET PO SCH (09:09)
[2023-01-02] MEDS: REMEDY PHYTOPLEX Z-GUARD PASTE 113GM TUBE (FROM STOREROOM PRODUCT) TOP SCH ×3 (09:10→20:39)
[2023-01-02] MEDS: NYSTATIN 100,000 UNITS/GM TOPICAL PWD 15GM TOP SCH ×2 (09:10→20:37)
[2023-01-02] MEDS: CARVedilol 12.5 MG TAB PO SCH ×2 (10:01→20:36)
[2023-01-02] MEDS: **hydrALAZINE HCL** 25 MG TAB PO SCH ×3 (10:01→20:37)
[2023-01-02 10:40] LABS: BASO % 0.2 % (0.0-1.0); EOS # 0.2 10^3/uL (0.0-0.5); EOS % 3.7 % (0.0-3.0); HEMATOCRIT 32.2 % (36.0-47.0); HEMOGLOBIN 10.3 g/dl (12.0-15.5); LYMPH # 0.8 10^3/uL (1.5-5.0); LYMPH % 14.7 % (24.0-44.0); MEAN CORPUSCULAR HEMOGLOBIN 30.7 pg (27.0-33.0); MEAN CORPUSCULAR VOLUME 96.1 fl (80.0-96.0); MONO # 0.5 10^3/uL (0.0-0.8); MONO % 8.6 % (2.0-8.0); NEUTROPHILS # 4.1 10^3/uL (1.5-8.5); NEUTROPHILS % 72.1 % (36.0-66.0); PLATELET COUNT, AUTOMATED 224 10^3/uL (150-450); RED BLOOD COUNT 3.35 10^6/uL (4.00-5.40); WHITE BLOOD COUNT 5.7 10^3/uL (4.0-10.0)
[2023-01-02 11:15] LABS: CREATININE FOR GFR 1.15 MG/DL (0.55-1.30); GLOMERULAR FILTRATION RATE 47.5 (>32); POTASSIUM SERUM 3.6 MMOL/L (3.5-5.1)
[2023-01-02 14:00] VITALS: BP 118/56
[2023-01-02 20:00] VITALS: BP 133/61
[2023-01-02] MEDS: CHOLESTYRAMINE 4GM PWD PKT PO SCH (20:34)
[2023-01-02] MEDS: ATORVASTATIN 20 MG TAB PO SCH (20:35)
[2023-01-02] MEDS: ACETAMINOPHEN 650MG ER TAB (TYLENOL ARTHRITIS) PO SCH (20:35)
[2023-01-02] MEDS: MAGNESIUM OXIDE 400MG TAB (MAG-OX) PO SCH (20:36)
[2023-01-03 06:00] VITALS: BP 137/82
[2023-01-03] MEDS: DANTROLENE 25 MG CAP PO SCH ×2 (06:37→20:47)
[2023-01-03] MEDS: BUDESONIDE 0.25 MG/2 ML INHALATION SUSPENSION INH SCH ×2 (08:22→19:50)
[2023-01-03] MEDS: TIOTROPIUM INHALER/CAPSULE (SPIRIVA) INH SCH (08:22)
[2023-01-03] MEDS: COMBIVENT RESPIMAT 100-20MCG INHALER 4GM INH SCH ×3 (08:22→19:50)
[2023-01-03] MEDS: SUCRALFATE 1 GM TAB PO SCH ×3 (08:59→17:50)
[2023-01-03] MEDS: SALIVA SUBSTITUTE(MOUTHKOTE) BTL MT SCH ×4 (09:00→20:47)
[2023-01-03] MEDS: **hydrALAZINE HCL** 25 MG TAB PO SCH ×3 (09:00→20:49)
[2023-01-03] MEDS: GLIMEPIRIDE 1 MG TABLET PO SCH (09:00)
[2023-01-03] MEDS: CARVedilol 12.5 MG TAB PO SCH ×2 (09:01→20:48)
[2023-01-03] MEDS: PANTOPRAZOLE 40MG TAB (PROTONIX) PO SCH ×2 (09:01→20:48)
[2023-01-03] MEDS: guaiFENesin 200 MG TAB PO SCH ×3 (09:01→20:49)
[2023-01-03] MEDS: APIXABAN 5 MG TAB (ELIQUIS) PO SCH ×2 (09:01→20:48)
[2023-01-03] MEDS: ESCITALOPRAM OXALATE 10 MG TAB (LEXAPRO) PO SCH (09:01)
[2023-01-03] MEDS: ASPIRIN 81MG ENTERIC TABLET PO SCH (09:01)
[2023-01-03] MEDS: REMEDY PHYTOPLEX Z-GUARD PASTE 113GM TUBE (FROM STOREROOM PRODUCT) TOP SCH ×3 (09:02→20:50)
[2023-01-03] MEDS: LIDOCAINE 5% (LIDODERM) PATCH TD SCH (09:02)
[2023-01-03] MEDS: NYSTATIN 100,000 UNITS/GM TOPICAL PWD 15GM TOP SCH ×2 (09:02→20:49)
[2023-01-03 14:00] VITALS: BP 145/71
[2023-01-03 17:48] VITALS: BP 108/62
[2023-01-03 19:47] VITALS: BP 169/74
[2023-01-03] MEDS: CHOLESTYRAMINE 4GM PWD PKT PO SCH (20:47)
[2023-01-03] MEDS: ACETAMINOPHEN 650MG ER TAB (TYLENOL ARTHRITIS) PO SCH (20:47)
[2023-01-03] MEDS: MAGNESIUM OXIDE 400MG TAB (MAG-OX) PO SCH (20:48)
[2023-01-03] MEDS: ATORVASTATIN 20 MG TAB PO SCH (20:49)
[2023-01-04 04:37] VITALS: BP 152/68
[2023-01-04] MEDS: DANTROLENE 25 MG CAP PO SCH ×2 (06:09→20:35)
[2023-01-04] MEDS: BUDESONIDE 0.25 MG/2 ML INHALATION SUSPENSION INH SCH ×2 (07:55→19:55)
[2023-01-04] MEDS: COMBIVENT RESPIMAT 100-20MCG INHALER 4GM INH SCH ×3 (07:55→19:55)
[2023-01-04] MEDS: TIOTROPIUM INHALER/CAPSULE (SPIRIVA) INH SCH (07:55)
[2023-01-04] MEDS: SALIVA SUBSTITUTE(MOUTHKOTE) BTL MT SCH ×4 (08:14→20:36)
[2023-01-04] MEDS: SUCRALFATE 1 GM TAB PO SCH ×3 (08:14→16:45)
[2023-01-04] MEDS: GLIMEPIRIDE 1 MG TABLET PO SCH (08:15)
[2023-01-04] MEDS: CARVedilol 12.5 MG TAB PO SCH ×2 (08:15→20:40)
[2023-01-04] MEDS: LIDOCAINE 5% (LIDODERM) PATCH TD SCH (08:16)
[2023-01-04] MEDS: guaiFENesin 200 MG TAB PO SCH ×4 (08:16→21:33)
[2023-01-04] MEDS: APIXABAN 5 MG TAB (ELIQUIS) PO SCH ×2 (08:16→20:35)
[2023-01-04] MEDS: ASPIRIN 81MG ENTERIC TABLET PO SCH (08:16)
[2023-01-04] MEDS: PANTOPRAZOLE 40MG TAB (PROTONIX) PO SCH ×2 (08:16→20:33)
[2023-01-04] MEDS: ESCITALOPRAM OXALATE 10 MG TAB (LEXAPRO) PO SCH (08:16)
[2023-01-04] MEDS: REMEDY PHYTOPLEX Z-GUARD PASTE 113GM TUBE (FROM STOREROOM PRODUCT) TOP SCH ×3 (08:17→20:34)
[2023-01-04] MEDS: NYSTATIN 100,000 UNITS/GM TOPICAL PWD 15GM TOP SCH ×2 (08:17→20:34)
[2023-01-04] MEDS: **hydrALAZINE HCL** 25 MG TAB PO SCH ×3 (08:18→20:40)
[2023-01-04 14:00] VITALS: BP 160/80
[2023-01-04 20:00] VITALS: BP 92/55
[2023-01-04] MEDS: ATORVASTATIN 20 MG TAB PO SCH (20:33)
[2023-01-04] MEDS: ACETAMINOPHEN 650MG ER TAB (TYLENOL ARTHRITIS) PO SCH (20:33)
[2023-01-04] MEDS: CHOLESTYRAMINE 4GM PWD PKT PO SCH (20:33)
[2023-01-04] MEDS: MAGNESIUM OXIDE 400MG TAB (MAG-OX) PO SCH (20:35)
[2023-01-04 20:40] VITALS: BP 100/55
[2023-01-05 05:37] VITALS: BP 149/72
[2023-01-05] MEDS: DANTROLENE 25 MG CAP PO SCH ×2 (06:06→20:14)
[2023-01-05] MEDS: COMBIVENT RESPIMAT 100-20MCG INHALER 4GM INH SCH ×2 (07:41→19:57)
[2023-01-05] MEDS: guaiFENesin 200 MG TAB PO SCH ×3 (08:39→20:14)
[2023-01-05] MEDS: ESCITALOPRAM OXALATE 10 MG TAB (LEXAPRO) PO SCH (08:39)
[2023-01-05] MEDS: PANTOPRAZOLE 40MG TAB (PROTONIX) PO SCH ×2 (08:39→20:15)
[2023-01-05] MEDS: GLIMEPIRIDE 1 MG TABLET PO SCH (08:39)
[2023-01-05] MEDS: ASPIRIN 81MG ENTERIC TABLET PO SCH (08:39)
[2023-01-05] MEDS: SUCRALFATE 1 GM TAB PO SCH ×3 (08:40→18:43)
[2023-01-05] MEDS: **hydrALAZINE HCL** 25 MG TAB PO SCH ×3 (08:40→20:14)
[2023-01-05] MEDS: APIXABAN 5 MG TAB (ELIQUIS) PO SCH ×2 (08:40→20:14)
[2023-01-05] MEDS: SALIVA SUBSTITUTE(MOUTHKOTE) BTL MT SCH ×4 (08:40→20:15)
[2023-01-05] MEDS: CARVedilol 12.5 MG TAB PO SCH ×2 (08:40→20:14)
[2023-01-05] MEDS: REMEDY PHYTOPLEX Z-GUARD PASTE 113GM TUBE (FROM STOREROOM PRODUCT) TOP SCH ×3 (08:41→20:16)
[2023-01-05] MEDS: NYSTATIN 100,000 UNITS/GM TOPICAL PWD 15GM TOP SCH ×2 (08:41→20:16)
[2023-01-05] MEDS: LIDOCAINE 5% (LIDODERM) PATCH TD SCH (08:42)
[2023-01-05] MEDS: BUDESONIDE 0.25 MG/2 ML INHALATION SUSPENSION INH SCH ×2 (09:40→19:57)
[2023-01-05] MEDS: TIOTROPIUM INHALER/CAPSULE (SPIRIVA) INH SCH (09:40)
[2023-01-05 10:35] LABS: BASO % 0.4 % (0.0-1.0); EOS # 0.3 10^3/uL (0.0-0.5); HEMATOCRIT 33.2 % (36.0-47.0); HEMOGLOBIN 10.5 g/dl (12.0-15.5); LYMPH # 0.8 10^3/uL (1.5-5.0); LYMPH % 14.5 % (24.0-44.0); MEAN CORPUSCULAR HEMOGLOBIN 30.2 pg (27.0-33.0); MEAN CORPUSCULAR HGB CONC 31.6 g/dl (32.0-36.5); MEAN CORPUSCULAR VOLUME 95.4 fl (80.0-96.0); MONO # 0.5 10^3/uL (0.0-0.8); MONO % 9.1 % (2.0-8.0); NEUTROPHILS # 3.9 10^3/uL (1.5-8.5); NEUTROPHILS % 70.5 % (36.0-66.0); PLATELET COUNT, AUTOMATED 201 10^3/uL (150-450); RED BLOOD COUNT 3.48 10^6/uL (4.00-5.40); WHITE BLOOD COUNT 5.6 10^3/uL (4.0-10.0)
[2023-01-05 11:07] LABS: ALBUMIN 3.3 G/DL (3.2-5.2); BILIRUBIN,TOTAL 0.8 MG/DL (0.3-1.2); CALCIUM LEVEL 8.9 MG/DL (8.3-10.6); CREATININE FOR GFR 1.12 MG/DL (0.55-1.30); POTASSIUM SERUM 3.7 MMOL/L (3.5-5.1); TOTAL PROTEIN 6.1 G/DL (5.7-8.2)
[2023-01-05] MEDS ORDERED: HYDR25TA PO (12:49)
[2023-01-05] MEDS ORDERED: COMBAER6 INH (12:49)
[2023-01-05] MEDS ORDERED: SUCR1TA PO (12:49)
[2023-01-05] MEDS ORDERED: ACE65ERTAB PO (12:49)
[2023-01-05] MEDS ORDERED: MAGN400T2 PO (12:49)
[2023-01-05] MEDS ORDERED: TIOT18INH INH (12:49)
[2023-01-05] MEDS ORDERED: PANT40TA29 PO (12:49)
[2023-01-05] MEDS ORDERED: DANT25CA PO (12:49)
[2023-01-05] MEDS ORDERED: LEXA1TAB PO (12:49)
[2023-01-05] MEDS ORDERED: GLIM1TAB4 PO (12:49)
[2023-01-05] MEDS ORDERED: BUDE0.254 INH (12:49)
[2023-01-05 14:00] VITALS: BP 130/68
[2023-01-05 19:10] VITALS: BP 128/73
[2023-01-05] MEDS: ATORVASTATIN 20 MG TAB PO SCH (20:15)
[2023-01-05] MEDS: MAGNESIUM OXIDE 400MG TAB (MAG-OX) PO SCH (20:15)
[2023-01-05] MEDS: ACETAMINOPHEN 650MG ER TAB (TYLENOL ARTHRITIS) PO SCH (20:15)
[2023-01-05] MEDS: RAMELTEON 8 MG TAB (ROZEREM) PO PRN (20:15)
[2023-01-05] MEDS: CHOLESTYRAMINE 4GM PWD PKT PO SCH (20:17)
[2023-01-06] MEDS: COMBIVENT RESPIMAT 100-20MCG INHALER 4GM INH SCH ×2 (05:40→12:57)
[2023-01-06] MEDS: BUDESONIDE 0.25 MG/2 ML INHALATION SUSPENSION INH SCH (05:40)
[2023-01-06] MEDS: TIOTROPIUM INHALER/CAPSULE (SPIRIVA) INH SCH (05:40)
[2023-01-06 05:44] VITALS: BP 148/91
[2023-01-06] MEDS: DANTROLENE 25 MG CAP PO SCH (06:04)
[2023-01-06] MEDS: ESCITALOPRAM OXALATE 10 MG TAB (LEXAPRO) PO SCH (08:40)
[2023-01-06] MEDS: LIDOCAINE 5% (LIDODERM) PATCH TD SCH (08:40)
[2023-01-06] MEDS: SALIVA SUBSTITUTE(MOUTHKOTE) BTL MT SCH ×2 (08:40→13:23)
[2023-01-06] MEDS: ASPIRIN 81MG ENTERIC TABLET PO SCH (08:40)
[2023-01-06] MEDS: APIXABAN 5 MG TAB (ELIQUIS) PO SCH (08:40)
[2023-01-06] MEDS: PANTOPRAZOLE 40MG TAB (PROTONIX) PO SCH (08:40)
[2023-01-06] MEDS: guaiFENesin 200 MG TAB PO SCH (08:40)
[2023-01-06] MEDS: GLIMEPIRIDE 1 MG TABLET PO SCH (08:40)
[2023-01-06] MEDS: SUCRALFATE 1 GM TAB PO SCH ×2 (08:40→12:25)
[2023-01-06] MEDS: REMEDY PHYTOPLEX Z-GUARD PASTE 113GM TUBE (FROM STOREROOM PRODUCT) TOP SCH (08:41)
[2023-01-06] MEDS: NYSTATIN 100,000 UNITS/GM TOPICAL PWD 15GM TOP SCH (08:41)
[2023-01-06 08:42] VITALS: BP 148/91
[2023-01-06] MEDS: CARVedilol 12.5 MG TAB PO SCH (08:42)
[2023-01-06] MEDS: **hydrALAZINE HCL** 25 MG TAB PO SCH (08:42)
== END 2023-01-06 14:40 | DRG 57 ==
LOC: M ED INP 11:13 → M PM&R 11:20
PROVIDERS: ADMIT Physical Medicine & Rehabilitation; ATTEND Physical Medicine & Rehabilitation
DX: I69.351 Hemiplegia and hemiparesis following cerebral infarction affecting right dominant side (principal); I48.20 Chronic atrial fibrillation, unspecified; I67.2 Cerebral atherosclerosis; I69.391 Dysphagia following cerebral infarction; R13.10 Dysphagia, unspecified; M25.561 Pain in right knee; M79.671 Pain in right foot; I11.0 Hypertensive heart disease with heart failure; E11.9 Type 2 diabetes mellitus without complications; E78.5 Hyperlipidemia, unspecified; K21.9 Gastro-esophageal reflux disease without esophagitis; M19.90 Unspecified osteoarthritis, unspecified site; K57.90 Diverticulosis of intestine, part unspecified, without perforation or abscess without bleeding; D64.9 Anemia, unspecified; R32 Unspecified urinary incontinence; K64.9 Unspecified hemorrhoids; M25.641 Stiffness of right hand, not elsewhere classified; N32.81 Overactive bladder; J44.9 Chronic obstructive pulmonary disease, unspecified; K44.9 Diaphragmatic hernia without obstruction or gangrene; Z66 Do not resuscitate; I50.9 Heart failure, unspecified; Z74.09 Other reduced mobility; Z74.1 Need for assistance with personal care; Z95.0 Presence of cardiac pacemaker; Z87.891 Personal history of nicotine dependence; Z79.01 Long term (current) use of anticoagulants; Z79.84 Long term (current) use of oral hypoglycemic drugs; Z79.899 Other long term (current) drug therapy; Z85.3 Personal history of malignant neoplasm of breast; Z92.3 Personal history of irradiation